=== PATIENT | female | born 1935 | race Caucasian/White ===

== ENCOUNTER 2018-03-27 17:51 | Inpatient (IN) | payer MEDICARE, OTHER ==
[~2018-03-27] VITALS: Ht 157.5 cm; Wt 70.1 kg
[~2018-03-27 17:51] MED LIST changes: -ASPIR 8181 MG PO; -COMPAZINE10 MG PO; -LOMOTIL TABLET1 EACH PO; -NORCO 5-325 TA1 EACH PO; -PEPCID20 MG PO; -TRAMADOL 50 MG50 MG PO; -ZOFRAN ODT4 MG PO
[2018-03-27 20:00] VITALS: BP 150/59
[2018-03-27] MEDS ORDERED: PREDNISONE 5 MG5 M1 PO (20:57)
[2018-03-27] MEDS ORDERED: TUMS PO (20:57)
[2018-03-27 21:14] LABS: HEMATOCRIT 40.3 % (37.0-47.0); HEMOGLOBIN 13.3 gm/dL (12.0-15.0); MCH 31.4 pg (26.0-34.0); MCHC 33.1 g/dL (28.0-37.0); MCV 94.7 fL (80.0-100.0); MPV 8.8 fl. (7.2-11.1); RBC 4.25 mil/uL (4.20-5.00); RDW-CV 13.4 % (10.5-14.5); WBC 11.4 thou/uL (4.0-11.0)
[2018-03-27 21:32] LABS: ALBUMIN 3.6 g/dL (3.4-5.0); ALKALINE PHOSPHATASE 59 U/L (46-116); ANION GAP 7 mmol/L (7-16); BUN 9 mg/dL (7-18); CALCIUM 8.8 mg/dL (8.5-10.1); CHLORIDE 102 mmol/L (98-107); CO2 29 mmol/L (21-32); CREATININE 0.9 mg/dL (0.6-1.3); GLUCOSE 100 mg/dL (70-99); POTASSIUM 3.4 mmol/L (3.5-5.1); SGOT 29 U/L (15-37); SGPT 36 U/L (30-65); SODIUM 138 mmol/L (136-145); TOTAL BILIRUBIN 0.8 mg/dL (<0.1-1.0); TOTAL PROTEIN 7.5 g/dL (6.4-8.2); TROPONIN-I LEVEL <0.06 ng/mL (<0.06)
[2018-03-28] VITALS: BP 127/52
[2018-03-28 04:00] VITALS: BP 135/53; BP 153/53
--- NOTE | 2018-03-28 05:00 | NUR ---
PT DIRECT ADMIT TO 228. ALERT ORIETNED. UP INDEPENDENTLY. DENIES PAIN. BREATH SOUNDS CLEAR. ON RA. ANTIBIOTICS GIVEN. TELEMETRY SHOWS SR.
--- NOTE | 2018-03-28 05:31 | NUR ---
PT HAD METOPROLOL AND ATORVASTATIN ON MED RECONSILIATION LIST. PT STATED SHE NO LONGER TAKES THESE MEDS PER DR MILLER. METOPROLOL AND ATORVASTATIN PLACED ON EMAR. PT REFUSED. ATTEMPTED TO CONTACT DR MA RE DC THESE MEDS VIA YOU CALL MD. NO RETURN CALL. MECICATIONS ON EMAR BUT NOT ACKNOWLEDGED.
[2018-03-28 08:00] VITALS: BP 141/53
--- NOTE | 2018-03-28 11:00 | NUR ---
VSS, ASSUMED CARE OF PT IN THE AM, ASSESSMENT PERFORMED AND CHARTED, FALL PRECAUTIONS IN PLACE AND CALL LIGHT IN REACH, PT IS A&O4, ON RA, DENIES ANY C/O PAIN, HER GOAL IS SAFETY, PT IS TRACING SR ON THE MONITOR, WILL FOLLOW WITH PLAN OF CARE.
[2018-03-28 13:07] VITALS: BP 134/49
[2018-03-28 17:20] VITALS: BP 134/52
--- NOTE | 2018-03-28 17:53 | NUR ---
VSS, PT IS ON RA AND DENIES ANY PAIN IS A&O4, TRACING SR ON THE MONITOR, UP AD KAT, PT MET GOAL WALKED IN ROOM, HOURLY ROUNDS COMPLETED, NO STATUS CHANGE AT THIS TIME,
[2018-03-28 20:00] VITALS: BP 149/59
[2018-03-29] VITALS: BP 138/63
--- NOTE | 2018-03-29 01:34 | NUR ---
PT ALERT ORIENTED. UP INDEPENDENTLY. TELEMETRY SHOWS SR. DENIES PAIN. CLEAR LIQUID DIET BEING FOLLOWED.
[2018-03-29 04:00] VITALS: BP 147/55
[2018-03-29 05:21] LABS: HEMATOCRIT 38.5 % (37.0-47.0); HEMOGLOBIN 12.8 gm/dL (12.0-15.0); MCH 31.8 pg (26.0-34.0); MCHC 33.3 g/dL (28.0-37.0); MCV 95.5 fL (80.0-100.0); MPV 9.3 fl. (7.2-11.1); RBC 4.04 mil/uL (4.20-5.00); RDW-CV 13.3 % (10.5-14.5); WBC 10.1 thou/uL (4.0-11.0)
[2018-03-29 05:41] LABS: ALBUMIN 3.3 g/dL (3.4-5.0); CALCIUM 8.8 mg/dL (8.5-10.1); POTASSIUM 4.4 mmol/L (3.5-5.1); TOTAL BILIRUBIN 0.6 mg/dL (<0.1-1.0); TOTAL PROTEIN 6.5 g/dL (6.4-8.2)
[2018-03-29 08:00] VITALS: BP 166/55
[2018-03-29 12:41] VITALS: BP 145/44
--- NOTE | 2018-03-29 12:59 | CON ---
[address] [address] CONSULTATION Name: YASHIRA BAXTER Room: [address] ADM IN M.R.#: [id number] Admission: 03/27/18 Attend Phys: Carmela Banegas Discharge: Date of : 31 Report #: [id number] THIS REPORT FOR: //name// CC: Chencho Corea MD LOCATED WITHIN [facility] Ade Richey INDICATION: Preoperative evaluation. HISTORY OF PRESENT ILLNESS: The patient is a very pleasant 83-year-old white female who was admitted to the hospital after recent colonoscopy showed colonic mass consistent with malignancy. The patient was suspected of possibly having microperforation, although the abdominal CT today appears stable. She is clinically stable. She is not having any significant abdominal pain. There are plans for partial colon resection in the near future. From a cardiac standpoint, she has a history of severe calcific aortic stenosis, status post bioprosthetic aortic valve replacement in 2013. Followup echocardiograms have shown a normally functioning bioprosthetic aortic valve. Cardiac catheterization at the time of her surgery showed no significant coronary artery disease. Echocardiogram in May 2017, showed normal LV systolic function, moderate LVH, grade 1 diastolic dysfunction and a normally functioning bioprosthetic aortic valve. There was a moderate amount of mitral stenosis noted. She denies any chest pain, tightness or pressure. She is not having any orthopnea or paroxysmal nocturnal dyspnea. There are no symptoms to suggest angina or heart failure. PAST MEDICAL HISTORY: 1. Calcific aortic stenosis, status post bioprosthetic aortic valve replacement in 2013. 2. Hyperlipidemia. 3. Polymyalgia. 4. Gout. 5. Cholecystectomy remotely. 6. Appendectomy as a child. 7. Hysterectomy remotely. 8. Previous knee and ankle surgery. FAMILY HISTORY: Noncontributory. SOCIAL HISTORY: The patient is recently . She does not smoke. [place] [address] CONSULTATION Name: YASHIRA BAXTER Room: [address]#: [id number] Admission: 03/27/18 Attend Phys: Carmela Banegas Discharge: Date of : 31 Report #: [id number] ALLERGIES: SULFA. HOME MEDICATIONS: Aspirin 325 mg p.o. daily, Tums 2 tablets daily, Uloric 20 mg daily, multivitamin 1 tablet daily, prednisone 5 mg daily. REVIEW OF SYSTEMS: A 14-point review of systems is positive for history of a heart murmur. She has arthritis with polymyalgia as well. She wears glasses without acute visual changes, otherwise 14-point review of systems was unremarkable. PHYSICAL EXAMINATION: VITAL SIGNS: Stable. Blood pressure 135/53, pulse 70 and regular. GENERAL: This is a very pleasant elderly female who is in no distress. Mood and affect appropriate. HEENT: The patient is wearing glasses. Extraocular muscles are intact. Mucous membranes are moist. NECK: Examination of the neck shows no jugular venous distention. CHEST: Reveals clear lung alejandra. I do not appreciate wheezes or rales. CARDIAC: Reveals a regular rhythm with a grade 2/6 systolic ejection murmur. I do not appreciate a gallop. ABDOMEN: Reveals normal bowel sounds. EXTREMITIES: Show no edema. SKIN: Warm and dry. A 12-lead EKG shows sinus rhythm with left ventricular hypertrophy with repolarization abnormalities. Labs are reviewed. Sodium 138, potassium 3.4, chloride 102, bicarb 29, BUN 9, creatinine 0.9, serum glucose 100. LFTs within normal limits. Troponin less than 0.06. White blood cell count 11.4, hemoglobin 13.3, platelet count 233,000. Chest x-ray shows no acute cardiopulmonary process. IMPRESSION AND RECOMMENDATIONS: 1. The patient is scheduled for colon surgery in the near future. She is not at prohibitive risk from a cardiac standpoint. Okay to proceed without further cardiac testing. She does have a bioprosthetic aortic valve in place and should be treated with antibiotics perioperatively for SBE prophylaxis. 2. Status post bioprosthetic aortic valve replacement remotely. She continues with serial echocardiograms in the office. Her valve has been functioning normally on serial echocardiograms. 3. Hyperlipidemia. She has had some intolerance to [place] [address] CONSULTATION Name: YASHIRA BAXTER Room: [address] IN [facility].#: [id number] Admission: 03/27/18 Attend Phys: Carmela Banegas Discharge: Date of : 33 Report #: [id number] scheduled at her last visit to have a repeat fasting lipid profile in May 2018. We would continue with that plan. <ELECTRONICALLY SIGNED> By: Mike Bueno MD, FACJayna 03/29/18 1259 1147 [id number] Bueno MD, GILMA /nt
--- NOTE | 2018-03-29 16:59 | EKG ---
[place] [address] ELECTROCARDIOGRAM REPORT Name: YASHIRA BAXTER Room: [address] ADM IN M.R.#: [id number] Admission: 03/27/18 Attend Phys: Carmela Banegas Discharge: Date of : 33 Report #: [id number] THIS REPORT FOR: //name// [facility] Test Date: 2018-03-28 Test Time: 08:31:43 Pat Name: YASHIRA BAXTER Department: Room: [address] Gender: F Food And Nutrition Supervisor: : 1935 Requested By: Kalyan Hernández Order Number: [id number] Sisi MD: Mike Bueno Measurements Intervals Ferguson Rate: 60 P: 53 MI: 160 QRS: -18 QRSD: 114 T: QT: 434 QTc: 434 Interpretive Statements Sinus rhythm Probable left atrial enlargement LVH with secondary repolarization abnormality No previous ECG available for comparison Electronically Signed On 03-29-2018 16:59:38 CDT by Mike Bueno [email or web address] <ELECTRONICALLY SIGNED> By: Mike Bueno MD, [facility] 03/29/18 1659 D: 09/830 0 Mike Bueno MD, FACC /EPI
[2018-03-29 17:17] VITALS: BP 154/50
[2018-03-29 20:36] VITALS: BP 149/53
[2018-03-30] VITALS: BP 132/36
[2018-03-30 04:00] VITALS: BP 152/71
[2018-03-30 04:55] LABS: HEMATOCRIT 38.3 % (37.0-47.0); HEMOGLOBIN 12.8 gm/dL (12.0-15.0); MCH 31.7 pg (26.0-34.0); MCHC 33.4 g/dL (28.0-37.0); MCV 94.9 fL (80.0-100.0); MPV 9.5 fl. (7.2-11.1); RBC 4.04 mil/uL (4.20-5.00); RDW-CV 13.4 % (10.5-14.5); WBC 10.2 thou/uL (4.0-11.0)
--- NOTE | 2018-03-30 04:56 | NUR ---
Pt rested well overnight. No complaints. VSS. Awaiting surgery today, which is scheduled for 1700. Will continue to monitor.
[2018-03-30 05:48] LABS: ALBUMIN 3.3 g/dL (3.4-5.0); CALCIUM 8.9 mg/dL (8.5-10.1); CREATININE 0.9 mg/dL (0.6-1.3); PHOSPHORUS* 3.7 mg/dL (2.5-4.9); POTASSIUM 3.9 mmol/L (3.5-5.1); TOTAL BILIRUBIN 0.6 mg/dL (<0.1-1.0); TOTAL PROTEIN 6.5 g/dL (6.4-8.2)
[2018-03-30 08:05] VITALS: BP 139/48
--- NOTE | 2018-03-30 09:21 | NUR ---
Pt is A&O. Pt known to this CM from a previous stay of her . Pt informed that her in October of this year. Pt's dtr is Dr Delia Ernst. Pt and were staying with dtr prior to passing, Pt has since moved back to the family home in [place], [place]. Pt states that she will spend the winter at her dtr's home. Pt has a new colon CA dx, planned surgery today at 5pm. Pt is normally active and independent. Pt has DME at home, but does not use it, Pt has a walker, cane and wc. Hx of [facility] HH. Hx of SNF at [facility]. Pt stated that will likely dc to her dtr's home at dc. Following.
--- NOTE | 2018-03-30 10:22 | NUR ---
RECEIVED REPORT FROM CHLOE AND ASSUMED CARE OF PT @ 4455.PT IS A/O,VSS,TRACING SB-SR ON THE MONITOR.LUNG SOUNDS ARE CLEAR. LAST BM WAS YESTERDAY.IV PATENT AND SALINE LOCKED.PT IS CALM AND COOPERATIVE WITH NO C/O PAIN AT TIME OF ASSESSMENT.PT NPO AFTER BREAKFAST FOR SURGERY THIS EVENING.CONSENT SIGNED AND ON THE CHART.PRE-OP CHECKLIST COMPLETED.PT UP AD KAT IN ROOM.CALL LIGHT WITHIN REACH.WILL CONTINUE TO MONITOR.
[2018-03-30 10:27] VITALS: BP 139/48; BP 144/67
[2018-03-30 14:17] VITALS: BP 146/45
--- NOTE | 2018-03-30 18:35 | NUR ---
PT REMAINS OFF UNIT FOR GI PROCEDURE.REPORT GIVEN TO NEXT NURSE.NO C/O PAIN THIS SHIFT.IV ANTIBIOTICS COMPLETED THIS SHIFT.PT AMBULATED IN ROOM BY SELF.HOURLY ROUNDING COMPLETED FOR PT SAFETY.
[2018-03-30 21:30] VITALS: BP 146/45
[2018-03-31] VITALS: BP 127/47
[2018-03-31 04:00] VITALS: BP 127/61
[2018-03-31 05:11] LABS: HEMATOCRIT 36.8 % (37.0-47.0); HEMOGLOBIN 12.3 gm/dL (12.0-15.0); MCH 31.7 pg (26.0-34.0); MCHC 33.3 g/dL (28.0-37.0); MCV 95.2 fL (80.0-100.0); MPV 9.3 fl. (7.2-11.1); NUCLEATED RBCS 0 /100WBC; PLATELET COUNT* 218 thou/uL (150-400); RBC 3.87 mil/uL (4.20-5.00); RDW-CV 13.2 % (10.5-14.5); WBC 16.2 thou/uL (4.0-11.0)
[2018-03-31 05:39] LABS: CALCIUM 8.4 mg/dL (8.5-10.1); POTASSIUM 4.4 mmol/L (3.5-5.1)
[2018-03-31 05:56] LABS: ABSOLUTE LYMPHOCYTES 2.6 thou/uL (0.8-5.3); ABSOLUTE MONOCYTES 0.5 thou/uL (0.0-1.2); ABSOLUTE NEUTROPHILS 13.1 thou/uL (1.6-8.1); ANISOCYTOSIS 1+; PLATELET ESTIMATE ADEQUATE; POIKILOCYTOSIS 1+
--- NOTE | 2018-03-31 07:08 | NUR ---
PT TO FLOOR 2129 FROM SURGERY. VITALS STABLE. SEE MAR. SEE CHARTING. FALL PRECAUTIONS IN PLACE. HOURLY ROUNDING FOR SAFETY.
--- NOTE | 2018-03-31 07:25 | NUR ---
CHANGE OF SHIFT BEDSIDE REPORT GIVEN PATIENT SEEN AT BEDSIDE, IN BED ASLEEP ASSUMED PATIENT CARE
[2018-03-31 07:57] VITALS: BP 114/50
--- NOTE | 2018-03-31 11:59 | NUR ---
CONTINUE TO FOLLOW, MET [facility] PT. SHE IS UP IN CHAIR, STATES DOING WELL POST OP. SHE PLANS TO [place] TO DTR[place] WHERE SHE HAS HER OWN 'APT.' STATES SHE WILL BE HOME ALONE DURING THE DAY, DISCUSSED HH, SHE IS AGREEABLE TO USE [facility] [place]. WILL FOLLOW PROGRESS. CALLED AND FAXED INITIAL REFERRAL TO [facility]
[2018-03-31 12:07] VITALS: BP 118/47
[2018-03-31 15:49] VITALS: BP 106/47
[2018-03-31 19:05] VITALS: BP 111/50
[2018-04-01] VITALS: BP 123/34
[2018-04-01 04:00] VITALS: BP 135/47
[2018-04-01 05:02] LABS: ABSOLUTE BASOPHILS 0.1 thou/uL (0.0-0.2); ABSOLUTE EOSINOPHILS 0.1 thou/uL (0.0-0.7); ABSOLUTE LYMPHOCYTES 2.8 thou/uL (0.8-5.3); ABSOLUTE MONOCYTES 0.8 thou/uL (0.0-1.2); ABSOLUTE NEUTROPHILS 10.5 thou/uL (1.6-8.1); BASOPHILS 0.4 %; EOSINOPHILS 0.9 %; HEMATOCRIT 36.5 % (37.0-47.0); LYMPHOCYTES 19.6 %; MCH 31.6 pg (26.0-34.0); MCHC 32.9 g/dL (28.0-37.0); MONOCYTES 5.8 %; MPV 9.1 fl. (7.2-11.1); NUCLEATED RBCS 0 /100WBC; PLATELET COUNT* 196 thou/uL (150-400); POLYS 73.3 %; RDW-CV 13.5 % (10.5-14.5); WBC 14.4 thou/uL (4.0-11.0)
[2018-04-01 05:21] LABS: CALCIUM 8.2 mg/dL (8.5-10.1); CREATININE 0.9 mg/dL (0.6-1.3); MAGNESIUM 1.9 mg/dL (1.8-2.4); PHOSPHORUS* 2.5 mg/dL (2.5-4.9); POTASSIUM 4.2 mmol/L (3.5-5.1)
--- NOTE | 2018-04-01 05:23 | NUR ---
PT AAOX4 RESP REG AND UNLABORED SKIN W/D MARTÍN CUTE DISTRESSNOTED. PT SAT IN CHAIR AT BEDSIDE FOR SEVERAL HOURS THIS SHIFT. PT ASSISTED BACK TO BED WITHOUT DIFFICULTY. PT VOIDED WITHOUT DIFFICULT. LAP SITES CLEAN DRY AND INTACT. PT HAS HAD TWO SMALL LOOSE STOOLS THIS SHIFT. VSS AND NO ACUTE CHANGES THIS SHIFT. SON AT BEDSIDE. TELEMETRY PACK ITNACT WITH ALARMS SET/ WILL CONTINUE TO MONITOR
--- NOTE | 2018-04-01 07:25 | NUR ---
CHANGE OF SHIFT BEDSIDE REPORT GIVEN PATIENT SEEN IN BED ASLEEP ASSUMED PATIENT CARE
[2018-04-01 07:47] VITALS: BP 145/40
[2018-04-01 11:19] VITALS: BP 125/37
[2018-04-01 15:01] VITALS: BP 131/40
[2018-04-01 19:40] VITALS: BP 112/42
[2018-04-02] VITALS: BP 119/59
[2018-04-02 04:00] VITALS: BP 133/43
[2018-04-02 04:53] LABS: HEMATOCRIT 38.5 % (37.0-47.0); HEMOGLOBIN 12.5 gm/dL (12.0-15.0); MCH 30.8 pg (26.0-34.0); MCHC 32.4 g/dL (28.0-37.0); MPV 9.4 fl. (7.2-11.1); RBC 4.05 mil/uL (4.20-5.00); RDW-CV 13.5 % (10.5-14.5); WBC 11.5 thou/uL (4.0-11.0)
[2018-04-02 05:00] LABS: CALCIUM 8.6 mg/dL (8.5-10.1); CREATININE 0.9 mg/dL (0.6-1.3); MAGNESIUM 1.9 mg/dL (1.8-2.4); PHOSPHORUS* 2.8 mg/dL (2.5-4.9); POTASSIUM 3.8 mmol/L (3.5-5.1)
--- NOTE | 2018-04-02 05:25 | NUR ---
VITALS WNL. SEE MAR. SEE CHARTING. FALL PRECAUTIONS IN PLACE. HOURLY ROUNDING FOR SAFETY.
[2018-04-02 08:00] VITALS: BP 146/49
--- NOTE | 2018-04-02 08:00 | NUR ---
ASSUMED CARE AFTER RECIEVING REPORT AT 7:30. VSS AND CT SCAN TECH TRACING SB. PT IS ON ROOM AIR. PT HAS DISCOMFORT AT OPERATION SITE AND RATE HER PAIN AT 3, DENIES NEED FOR PAIN MED AT THIS TIME. PT IS UP WITH STANDBY. SOFT DIET STARTED. CALL LIGHT IS WITHIN REACH. WILL CONTINUE TO MONITOR. SHE WAS UP TO CHAIR FOR BREAKFAST AND TOLERATING IT WELL.
[2018-04-02 12:00] VITALS: BP 123/37
[2018-04-02 16:00] VITALS: BP 117/54
--- NOTE | 2018-04-02 17:54 | NUR ---
PT IS ALERT AND ORIENTED. SAT ON CHAIR FOR MOST OF THE DAY. TOOK NAP IN THE AFTERNOON. HAD LOOSE STOOLS TWO TIMES. CALL LIGHT WITHIN REACH. LAP INCISIONS DRY AND INTACT. PT HAS ABDOMINAL BINDER APPLIED. CARDIAC RHYTHM MONITORING, SINUS RHYTHM. SHE HAD POOR APPETITE, ATE QUATER OF HER PALTE. WILL CONTINUE TO MONITOR.
[2018-04-02 19:20] VITALS: BP 130/43
[2018-04-03] VITALS: BP 161/69
[2018-04-03 04:00] VITALS: BP 142/44
[2018-04-03 04:53] LABS: HEMATOCRIT 36.3 % (37.0-47.0); HEMOGLOBIN 12.2 gm/dL (12.0-15.0); MCH 31.5 pg (26.0-34.0); MCHC 33.6 g/dL (28.0-37.0); MCV 93.7 fL (80.0-100.0); MPV 9.4 fl. (7.2-11.1); RBC 3.87 mil/uL (4.20-5.00); RDW-CV 13.6 % (10.5-14.5); WBC 10.5 thou/uL (4.0-11.0)
--- NOTE | 2018-04-03 05:22 | NUR ---
PT AAOX4 RESO REG AND UNALBORED SKIN W/D NO ACUTE DISTRESS NOTED. PT STATES SHE SHOULD BE DCD TODAY.TELEMETRY PACK INTACT WITH ALARMS SET. VSS AND NO ACUTE CHANGES DURIGN SHIFT WILL CONTINUE TO MONITOR. PT SAT IN CHAIR FOR SEVERAL HOURS LAST PM AND TOELRATED WELL
[2018-04-03 05:27] LABS: CALCIUM 8.4 mg/dL (8.5-10.1); CREATININE 0.8 mg/dL (0.6-1.3); MAGNESIUM 1.9 mg/dL (1.8-2.4); PHOSPHORUS* 2.8 mg/dL (2.5-4.9); POTASSIUM 3.7 mmol/L (3.5-5.1)
[2018-04-03 08:13] VITALS: BP 141/45
--- NOTE | 2018-04-03 11:16 | NUR ---
RECEIVED REPORT FROM EMIGDIO AND ASSUMED CARE OF PT @ 3598.PT IS A/O,VSS,TRACING SB ON THE MONITOR.LUNG SOUNDS ARE CLEAR.LAST BM WAS YESTERDAY.IV PATENT AND SALINE LOCKED.ABDOMINAL BINDER SECURE IN PLACE.PT IS CALM AND COOPERATIVE WITH NO C/O PAIN AT TIME OF ASSESSMENT.PT WORKED WITH PHYSICAL THERAPY THIS AM AND AMBULATED IN THE [facility].PT IS UP WITH SBA IN ROOM.PT LEFT RESTING IN RECLINER WITH CALL LIGHT AND FALL PRECAUTIONS IN PLACE.WILL CONTINUE TO MONITOR.
[2018-04-03 11:50] VITALS: BP 143/46
[2018-04-03 14:00] VITALS: BP 143/46
[2018-04-03] MEDS ORDERED: NORCO 5-325 TA1 EACH PO (14:10)
[2018-04-03] MEDS ORDERED: TRAMADOL 50 MG50 MG PO (14:12)
--- NOTE | 2018-04-03 14:36 | NUR ---
PT OK FOR DISCHARGE.PAPERWORK COMPLETED AND GIVEN TO PT.SCRIPTS GIVEN WITH EDUCATION.IV REMOVED.HEART MONITOR REMOVED AND RETURNED TO NURSING STATION.ALL PERSONAL BELONGINGS PACKED AND TAKEN WITH PT.PT WHEELED OUT BY NURSING STAFF WITH FAMILY TO PERSONAL VEHICLE.
--- NOTE | 2018-04-03 14:55 | NUR ---
ORDERS FOR DC NOTED. CALLED AND FAXED ORDERS TO [facility], REQUESTED VISIT ON FRIDAY LATER IN DAY PER PT. PT TO GO HOME WTIH HER SON TODAY AND THEN BACK TO HER HOME AT DTR'S ON FRIDAY. NO OTHER NEEDS ID;D
--- NOTE | 2018-04-11 12:39 | OP ---
[address] [address] OPERATIVE REPORT Name: YASHIRA BAXTER Room: [address] IN M.R.#: [id number] Admission: 03/27/18 Attend Phys: Carmela Banegas Discharge: 04/03/18 Date of : 31 Report #: [id number] THIS REPORT FOR: //name// CC: Jamison Hernández DATE OF SERVICE: 03/30/2018 PREPROCEDURE DIAGNOSIS: Sigmoid colon cancer. POSTPROCEDURE DIAGNOSES: Sigmoid colon cancer with dense adhesions between the omentum and the anterior abdominal wall, dense adhesions overlying the colon in the right lower quadrant as well. There was a large firm mass in the mid portion of the sigmoid with proximal and distal tattoos evident. SURGEON: Melani Kaplan DO. COSURGEON: Dillan España, PGY-4. DECORATIVE CUTTING MACHINE TENDER: Jeanine Krishnamurthy, PGY-1. PROCEDURES PERFORMED: Laparoscopic sigmoid resection with end-to-end anastomosis and rigid sigmoidoscopy, lysis of adhesions greater than 1 hour. ANESTHESIA: General endotracheal and local. ESTIMATED BLOOD LOSS: 10 mL. DRAINS: Schultz. SPECIMENS: Sigmoid colon. COMPLICATIONS: None. CONDITION: Stable. DISPOSITION: PACU to the floor. HISTORY OF PRESENT ILLNESS: The patient is a very litzy 83-year-old female who recently presented to the [facility] for outpatient colonoscopy. This was completed without difficulty, with findings of a sigmoid colon mass, which was biopsied and tattooed. She did have some pain following the colonoscopy, so was admitted to the hospital. During her hospital stay, the pathology did return with findings of colon cancer. She was then consulted to my service. After the appropriate preoperative clearances, she was then [place] [address] OPERATIVE REPORT Name: YASHIRA BAXTER Room: [address]#: [id number] Admission: 03/27/18 Attend Phys: Carmela Banegas Discharge: 04/03/18 Date of : 33 Report #: [id number] surgery for a laparoscopic sigmoidectomy, possible open. Risks discussed included bleeding, infection, pain, scar formation, injury to bowel or bladder or other intra-abdominal organs, hernia at the incision sites, need for an open procedure, need for colostomy and risks of general anesthesia. The patient understood these risks and elected to proceed. DESCRIPTION OF PROCEDURE: The patient was brought to the operating room. She was laid supine on the operating room table. SCDs were placed to bilateral lower extremities. Antibiotics were given in the perioperative period. General endotracheal anesthesia was induced by Anesthesia without difficulty. Schultz catheter was placed utilizing sterile technique. The patient was placed in lithotomy position with all possible pressure points adequately cautioned. Arms were tucked to the sides. Abdomen was prepped and draped in the standard sterile fashion. Timeout was performed to verify patient and procedure. 10 mL of 0.5% Marcaine were injected in the umbilical area. Incision was made with 11 blade. Cautery was used for hemostasis. S retractors were used to visualize the fascia. Fascia was grasped and elevated between 2 Kochers. Fascia was incised using cautery. Peritoneum was bluntly entered using a Tomasa clamp. Finger was introduced into the abdomen to assure that there were no caridad-incisional adhesions; none were identified. Two stitches of 0 Vicryl were placed on the fascia. Ashley trocar was introduced and the abdomen was insufflated. Camera was introduced and a brief anterior abdominal exploration was undertaken with findings of an obvious sigmoid colon mass which was somewhat tethered down in the right lower quadrant. There were proximal and distal tattoos evident. There were very dense adhesions in the right lower quadrant, overlying the colon. There were multiple dense adhesions along the entire right side of the abdomen, most likely from previous surgery. Three additional trocars were introduced, all under direct visualization; an 11 mm in the right lower quadrant, a 5 mm in the suprapubic area and a 5 mm in the right upper quadrant. We then proceeded with delicate and tedious lysis of adhesions of all the adhesions in the right upper quadrant and the adhesions overlying the right lower quadrant, utilizing a combination of blunt and scissor dissection. Once the entirety of the adhesions was cleared, I then focused on the sigmoid colon. The lysis of adhesions did proceed for longer than 1 hour. The sigmoid colon was densely adhered into the right lower quadrant, especially in the area overlying the iliac artery and vein. It was very gently dissected free from this area using scissor dissection. Once the sigmoid colon was entirely free, it was gently rotated to the right side of the abdomen. The left-sided white line of Toldt was incised using cautery, starting at the proximal tattoo and moving to the distal tattoo. Care was taken to avoid the ureter. Sigmoid colon was then mobilized to the left side of the abdomen and the medial portion of the mesentery was similarly incised, moving from the [address] [address] OPERATIVE REPORT Name: YASHIRA BAXTER Room: [address]#: [id number] Admission: 03/27/18 Attend Phys: Carmela Banegas Discharge: 04/03/18 Date of : 33 Report #: [id number] proximal tattoo to the distal tattoo. Retroperitoneal structures were gently swept away. An area of healthy-appearing distal colon was identified right at the distal tattoo. At this area, a window was created in the mesentery using a combination of LigaSure and blunt dissection. A 60-mm purple load Endo-ANALISA stapler was introduced into the abdomen and the distal colon was clamped and stapled without difficulty. The mesentery of the colon was then taken with serial firings of the LigaSure, again taking care to avoid the ureter. Once we reached the proximal tattoo, the sigmoid colon was entirely free. A locking clamp was placed on the distal portion of our colon. The abdomen was desufflated and the patient was placed supine. Our Ashley trocar was removed. The umbilical incision was enlarged using a 10 blade. Cautery was used for hemostasis to enlarge both the subcutaneous and the peritoneal wound. An Mazin wound protector was introduced. The sigmoid colon was then easily grasped using a [place] and was eviscerated from the abdomen. A bowel grasper was very gently placed across the healthy portion of our proximal bowel and the sigmoid colon was transected using heavy curved scissors. This was then handed off for specimen. Allis clamps were used to gently open our stump. The interior was inspected. There was no sign of any disease or bleeding. Dilators were then passed. The largest sized dilator that would easily pass was a 31. A 31 XL EEA stapler was then opened. The anvil was easily introduced into our enterotomy. The enterotomy was then closed with a 60 mm purple load Endo-ANALISA stapler fire. Anvil was gently pushed through the serosa. Colon was allowed to return into the abdomen. Cap was placed on the Mazin and abdomen was reinsufflated. The patient was again gently placed head down and slightly tilted to the left. At this point, my quality control assistant, Dr. España, went below. Rigid sigmoidoscopy was introduced and a brief inspection was completed of the stump, with no findings of injury. A bubble test was performed, with no findings of any leakage from the stump. The dilators were passed without difficulty. The EEA stapler was also introduced without any issue. Anvil was gently grasped and easily reached the area of our distal colon. The remaining descending colon was completely tension-free. Anvil was introduced onto the stapler and an end-to-end anastomosis was completed without difficulty. Again, care was taken to make sure that the proximal colon was tension-free and was not twisted. EEA stapler was removed. Rigid sigmoidoscopy was again introduced by Dr. España and a brief inspection was completed, with no significant findings. The proximal colon was gently clamped using a bowel grasper and a repeat bubble study was completed of the anastomosis, with no findings of any leakage. The abdomen and pelvis were copiously irrigated until clear. Hemostasis was assured. Small bowel was allowed to fall into its anatomical position. The omentum was brought down to lay into its anatomical position, covering our newly made anastomosis. Our trocars were all removed under direct visualization. There was no bleeding noted from the peritoneum. Abdomen was then completely [address] [address] OPERATIVE REPORT Name: YASHIRA BAXTER Room: M.228-P DIS IN M.R.#: [id number] Admission: 03/27/18 Attend Phys: Carmela Banegas Discharge: 04/03/18 Date of : 33 Report #: [id number] desufflated and Mazin wound protector was removed. Kochers were placed on the fascia of our umbilical port. Fascia was then closed with multiple interrupted stitches of a 0 Vicryl in a mhzjld-mh-wgrls fashion with excellent approximation of the fascia. An additional 10 mL of 0.5% Marcaine were injected in the fascia. This wound was closed in a layered fashion using deep and superficial stitches of 3-0 Vicryl in an inverted interrupted fashion. All skin wounds were then closed with 4-0 Monocryl. A total of 30 mL of 0.5% Marcaine were used to anesthetize the wounds. Wounds were then cleansed and covered with Mastisol, Steri-Strips, 4 x 4's and Tegaderm. The patient was then allowed to awaken from anesthesia, was extubated and transported to the recovery room with no further difficulties. Counts were correct x 2 at the conclusion of the case. <ELECTRONICALLY SIGNED> By: Melani Kaplan DO 04/11/18 1239 [id number] [id number] Kaplan DO /nt
--- NOTE | 2018-05-19 15:08 | PATH ---
[address] [address] PATHOLOGY RPT PROCEDURE Name: ELISABET BAXTER Room: [address] IN M.R.#: [id number] Admission: 03/27/18 Date of : 31 Discharge: 04/03/18 Report #: [id number] Path Case #: [id number] LCA Accession Number: [id number] . 01 Material submitted: . SIGMOID COLON WITH ANASTOMIC RINGS . 01 Clinical history: . Colon cancer . 02 Diagnosis: SIGMOID COLON WITH ANASTOMOTIC RINGS: - ULCERATED, NEAR CIRCUMFERENTIAL COLONIC ADENOCARCINOMA, FORMING A MASS MEASURING 3.8 X 1.6 CM, WITH TRANSMURAL INVASION INTO PERICOLIC FAT TO SUBSEROSA WITHOUT INVOLVING FREE SEROSAL SURFACE, WITH ALL SURGICAL MARGINS FREE OF INVOLVEMENT. - THREE OF TWENTY-FIVE PERICOLIC LYMPH NODES WITH METASTATIC ADENOCARCINOMA (0/25). - THREE MESENTERIC TUMOR DEPOSITS. - Acute serositis with foreign body-type granulomatous response. - Separate tubular adenoma without high grade dysplasia. - Two benign colonic anastomotic rings. LBQ/04/03/2018 . 02 Comment: Synoptic Report . Procedure: Sigmoidectomy Tumor Site: Sigmoid colon Tumor Size: 3.8 x 1.6 cm Macroscopic Tumor Perforation: Not identified Histologic Type: Adenocarcinoma Histologic Grade: G2: Moderately differentiated Tumor Extension: Tumor invades through the muscularis propria into pericolorectal tissue Margins: All margins are uninvolved by invasive carcinoma, high-grade dysplasia, intramucosal adenocarcinoma, and adenoma Margins examined: Proximal, distal, mesenteric Distance of invasive carcinoma from closest margin: 2.0 cm Closest margin: Mesenteric Proximal Margin: [place] [address] PATHOLOGY RPT PROCEDURE Name: ELISABET BAXTER Room: [address]#: [id number] Admission: 03/27/18 Date of : 31 Discharge: 04/03/18 Report #: [id number] Path Case #: [id number] Distance of tumor from margin: 7.0 cm Distal Margin: Uninvolved by invasive carcinoma Distance of tumor from margin: 4.3 cm Mesenteric Margin: Uninvolved by invasive carcinoma Distance of tumor from margin: 2.0 cm Treatment Effect: No known presurgical therapy Lymphovascular Invasion: Present Small vessel lymphovascular invasion Large vessel (venous) invasion Extramural Perineural Invasion: Not identified Tumor Budding: Number of tumor buds in 1 "hotspot" field: 4 Low score (0-4) Type of Polyp in Which Invasive Carcinoma Arose: None identified Tumor Deposits: Present Number of deposits: 3 Regional Lymph Nodes: Number of Lymph Nodes Involved: 3 Number of Lymph Nodes Examined: 25 PATHOLOGIC STAGE CLASSIFICATION (pTNM, AJCC 8TH EDITION) Primary Tumor (pT): pT3: Tumor invades through the muscularis propria into pericolorectal tissues Regional Lymph Nodes (pN): pN1b: Two or three regional lymph nodes are positive . Per discussion with Dr. Kaplan on afternoon of 04/03/2018, the open end of the segment of bowel was the proximal aspect. The tumor shows prominent necrosis and was grossly noted to extend into the pericolic fat for a depth of 0.5 cm, to just beneath the inked serosal surface without involving it. . In A17, several of the nodules represent large venous invasion of tumor as well as tumor deposits and a lymph node with metastatic tumor as well. Prominent acute serositis is present and in A5, it is seen to be associated with foreign body-type granulomatous response and review of Dr. Kaplan's consultation report, dated 03/28/2018, reveals a CT abdomen/pelvis after a recent prior colonoscopy revealed possible microperforation near the site of mass. There is no evidence of gross perforation of the tumor. A section taken from the distal stapled margin (A2) is noted to show prominent mural/serosal black pigment tattooing. . A3 reviewed with Dr. Augusto Travis who agrees with the diagnosis. (RICHARD/db; 04/03/18) . 02 [place] [address] PATHOLOGY RPT PROCEDURE Name: ELISABET BAXTER Room: [address] IN [facility].#: [id number] Admission: 03/27/18 Date of : 31 Discharge: 04/03/18 Report #: [id number] Path Case #: [id number] Addendum: . At the request of Dr. Nixon Haywood, mismatch repair (MMR) protein immunohistochemical staining was performed. . Specimen: Formalin fixed paraffin embedded tissue Specimen ID: [id number] A5 Reason for testing: To evaluate for evidence of defective mismatch repair proteins. Method: Immunohistochemical staining for the presence or absence of protein expression of one or more of the following MMR protein markers: MLH1, MSH2, MSH6 and PMS2. Tumor type: Colonic adenocarcinoma . Results: MLH1 - Preserved MSH2 - Preserved MSH6 - Preserved PMS2 - Preserved . Mismatch Repair Status: MMR Proficient (MMR-P) . Interpretation: . All four MMR proteins are preserved within tumor cells. This suggests the presence of normal DNA mismatch repair function within the tumor and an observable defect in mismatch repair is not identified. The likelihood that this patient has an inherited germline mutation syndrome due to defective mismatch repair is reduced but not totally eliminated. If the patient has a strong personal or family history of HPNCC/Cast syndrome related cancers (colorectal, endometrial, gastric, ovarian, pancreatic, ureter/renal pelvis, biliary tract, brain, small bowel and Odin-Karlos syndrome), consider MSI testing by PCR methodology. Suggest clinical correlation and follow up. . These test results are designed for screening purposes only and are useful tools in identifying cancer patients that are more likely to have Cast Syndrome related diagnoses. Tests should be interpreted in the context of clinical findings, family history and laboratory data. Abnormal IHC results for MMR protein expression are not considered diagnostic for Cast Syndrome. (RICHARD:bart; 05/19/2018) . . Professional services performed by [facility] at [facility], [address] [place] [address] [place] [address]. Technical services performed by [facility] at [address] [place] [address], [address], [place] [address]. S/05/19/2018 Addendum Electronically Signed by Bin Lincoln MD, [place] [address] PATHOLOGY RPT PROCEDURE Name: ELISABET BAXTER Room: [address] IN M.R.#: [id number] Admission: 03/27/18 Date of : 31 Discharge: 04/03/18 Report #: [id number] Path Case #: [id number] . 02 Electronically signed: . Bin Lincoln MD, Pathologist NPI- [id number] . 01 Gross description: . The specimen is received in formalin, labeled "Elisabet Baxter, sigmoid colon with anastomotic rings" and consists of an unoriented segment of large intestine measuring 13.0 cm in length and 2.3 cm in diameter with pericolic fat up to 4.3 cm. One margin is open while the other is closed with reina. The serosa is harris-brown with black tattoo ink adjacent to a "puckered area" that measures 1.5 x 1.2 cm. The mesenteric margin is inked blue and the serosa black. Opening the specimen reveals a near circumferential pink-harris, ulcerated, and fungating mass measuring 3.8 x 1.6 cm that extends from the margins as follows: 7.0 cm from open margin and 4.3 cm from the stapled margin. Adjacent to the mass is a bosselated polyp measuring 1.1 x 0.8 cm that extends from the stapled margin by 2.7 cm. The specimen is placed back in formalin for additional fixation. (SDY; 03/31/2018) . After additional fixation sectioning reveals the mass obliterates the muscular wall, abuts the black inked serosa, and invades into the pericolic fat to a maximum depth of 0.5 cm. The mass clears the mesenteric margin by 2.0 cm. The remainder of the mucosa is pink harris with no additional masses or lesions. Also received in the container is an anvil with two attached anastomotic rings that measure 1.8 x 1.5 x 0.4 cm and 1.4 x 1.0 x 0.4 cm. The larger ring has reina present and is inked black. The fat is sectioned and placed in clearing solution to reveal multiple lymph node candidates ranging from 0.1 cm to 1.0 cm. [employer] sections are submitted as follows: . A1: Open margin A2: Stapled margin A3-A4: Mass deep invasion A5-A6: Mass abutting blacking serosa A7-A9: Additional sales representative printing mass A10: Mesenteric margin, perpendicular A11: Polyp adjacent mass, bisected A12: Anastomotic rings, entire smaller and sales representative printing of the larger A13: One lymph node candidate serially sectioned A14: Two lymph nodes candidates bisected, one inked black A15: Multiple intact lymph node candidates A16: One trisected lymph node candidate A17: Multiple intact lymph node candidates A18: Two bisected lymph node candidates, one inked black A19-A20: Lymphovascular bundles (SDY; 04/01/2018) SYU/SYU . 02 [place] [address] PATHOLOGY RPT PROCEDURE Name: ELISABET BAXTER Room: [address] IN [facility].#: [id number] Admission: 03/27/18 Date of : 31 Discharge: 04/03/18 Report #: [id number] Path Case #: [id number] Pathologist provided ICD-10: C18.7, C77.2, D12.5, K65.8 . 02 CPT . 339743, 882346, X74011, T78721 Specimen Comment: A courtesy copy of this report has been sent to Specimen Comment: [phone], , , . Specimen Comment: Report sent to ,DR MCGILL / DR MENESES Specimen Comment: A duplicate report has been generated due to demographic updates. Performed at: [address], [place], [place] [address] MD Richi Akhtar MD Phone: [phone] Performed at: [facility] [address], [place], [place] [id number] MD Bin Lincoln MD Phone: [phone]
--- NOTE | 2018-06-03 17:34 | CON ---
[address] [address] CONSULTATION Name: YASHIRA BAXTER Room: [address] IN M.R.#: [id number] Admission: 03/27/18 Attend Phys: Carmela Banegas Discharge: 04/03/18 Date of : 31 Report #: [id number] THIS REPORT FOR: //name// CC: Jamison Hernández DATE OF SERVICE: 03/27/2018 REQUESTING PHYSICIAN: Dr. Kalyan Hernández REASON FOR CONSULT: Abnormal CT. This is an 83-year-old female with recently diagnosed colonic mass during her colonoscopy on Friday. The lesion was in the midsigmoid region and was extending 4 cm in length. This was an apple core lesion and was partially obstructing. The proximal and distal part of this lesion was tattooed. Her admission was prompted after she had a CT of abdomen and pelvis as a workup for her colon cancer. The lesion was noted in the CT with some abnormal pocketed small air collections close to the bladder. Given the patient's age, we considered to bring her to the hospital for further evaluation. PAST MEDICAL HISTORY: Significant for history of polymyalgia rheumatica, dyslipidemia, gallbladder disease, status post cholecystectomy, appendectomy, hysterectomy, oophorectomy, cataract surgery and gout. ALLERGIES: SIGNIFICANT TO SULFA. MEDICATIONS: Please refer to hospital MAR. SOCIAL HISTORY: The patient lives at home. Denies tobacco or alcohol use. FAMILY HISTORY: Negative for GI malignancy. ASSESSMENT AND PLAN: This is an 83-year-old female with a history of recent colonoscopy, which was significant for midsigmoid partially obstructing mass. The biopsies are significant for moderately differentiated adenocarcinoma of the colon. I believe that the abnormal finding in the CT is consistent with the submucosal injection of Nicolle ink to the proximal and distal ____ of the lesion. The patient is asymptomatic and passing stool and gas. I have discussed her case with Dr. Kaplan as we had [place] [address] CONSULTATION Name: YASHIRA BAXTER Room: [address] IN ..#: [id number] Admission: 03/27/18 Attend Phys: Carmela Banegas Discharge: 04/03/18 Date of : 33 Report #: [id number] segmental sigmoid resection and she was supposed to meet her on Friday in her office, but since she is in the hospital we can prep her for surgery and possibly do her surgery on Friday or Friday. We will discuss this with the patient's family and make further recommendation. <ELECTRONICALLY SIGNED> By: Ade Ornelas MD 06/03/18 1734 1040 1152Farid Nohelia Ornelas MD /nt
== END 2018-04-03 14:45 | disposition home health service (06) | DRG 856 ==
LOC: M.2W 17:51
PROVIDERS: Surgery; ADMIT Internal Medicine
PROC: 0DNU4ZZ Release Omentum, Percutaneous Endoscopic Approach (ICD-10-PCS; principal; 2018-03-30)
PROC: 0DBN4ZZ Excision of Sigmoid Colon, Percutaneous Endoscopic Approach (ICD-10-PCS; principal; 2018-03-30)
PROC: 0DJD8ZZ Inspection of Lower Intestinal Tract, Via Natural or Artificial Opening Endoscopic (ICD-10-PCS; principal; 2018-03-30)
PROC: 0DNE4ZZ Release Large Intestine, Percutaneous Endoscopic Approach (ICD-10-PCS; principal; 2018-03-30)
DX: T81.4XXA Infection following a procedure, initial encounter (principal); K63.1 Perforation of intestine (nontraumatic); K65.8 Other peritonitis; C18.7 Malignant neoplasm of sigmoid colon; K66.0 Peritoneal adhesions (postprocedural) (postinfection); M35.3 Polymyalgia rheumatica; E78.5 Hyperlipidemia, unspecified; M10.9 Gout, unspecified; Z96.1 Presence of intraocular lens; Y83.8 Other surgical procedures as the cause of abnormal reaction of the patient, or of later complication, without mention of misadventure at the time of the procedure; Y92.89 Other specified places as the place of occurrence of the external cause; Z90.49 Acquired absence of other specified parts of digestive tract; Z90.710 Acquired absence of both cervix and uterus; Z90.721 Acquired absence of ovaries, unilateral; Z95.2 Presence of prosthetic heart valve; Z98.42 Cataract extraction status, left eye; Z98.41 Cataract extraction status, right eye; Z79.82 Long term (current) use of aspirin; Z79.899 Other long term (current) drug therapy; Z88.2 Allergy status to sulfonamides

== ENCOUNTER → 2018-03-27 | Outpatient (CLI) | payer MEDICARE, OTHER ==
[~2018-03-27] MED LIST: ASPIR 8181 MG PO; ASPIRIN325 PO; CENTRUM SILVER1 EAC4 PO; COMPAZINE10 MG PO; ECOTRIN81 MG PO; HYDROCODONE-AP1 EAC6 PO; KEFLEX500 M1 PO; LIVALO1 MG PO; LOMOTIL TABLET1 EACH PO; MILLIPRED DP5 M1 PO; NORCO 5-325 TA1 EACH PO; ONDANSETRON HCL4 M2 PO; PEPCID20 MG PO; PREDNISONE 5 MG5 M1 PO; PRINIVIL10 MG PO; TOPROL XL25 MG PO; TRAMADOL 50 MG50 MG PO; TUMS PO; TYLENOL325 MG PO; ULORIC40 MG PO; XARELTO10 MG PO; ZOFRAN ODT4 MG PO
[2018-03-27 12:28] LABS: ABSOLUTE EOSINOPHILS 0.2 thou/uL (0.0-0.7); ABSOLUTE LYMPHOCYTES 3.5 thou/uL (0.8-5.3); ABSOLUTE MONOCYTES 0.6 thou/uL (0.0-1.2); ABSOLUTE NEUTROPHILS 8.6 thou/uL (1.6-8.1); BASOPHILS 0.2 %; EOSINOPHILS 1.4 %; HEMATOCRIT 42.9 % (37.0-47.0); HEMOGLOBIN 13.8 gm/dL (12.0-15.0); LYMPHOCYTES 26.8 %; MCH 30.7 pg (26.0-34.0); MCHC 32.3 g/dL (28.0-37.0); MCV 95.2 fL (80.0-100.0); MONOCYTES 4.8 %; MPV 8.9 fl. (7.2-11.1); NUCLEATED RBCS 0 /100WBC; PLATELET COUNT* 262 thou/uL (150-400); POLYS 66.8 %; RDW-CV 13.4 % (10.5-14.5); WBC 12.9 thou/uL (4.0-11.0)
[2018-03-27 12:42] LABS: ALBUMIN 3.9 g/dL (3.4-5.0); POTASSIUM 3.9 mmol/L (3.5-5.1); TOTAL BILIRUBIN 0.9 mg/dL (<0.1-1.0)
== END ==
LOC: M.LAB 11:58 → M.CT 13:30
PROVIDERS: Internal Medicine Gastroenterology
DX: C18.9 Malignant neoplasm of colon, unspecified (principal); J98.4 Other disorders of lung; M41.84 Other forms of scoliosis, thoracic region; E78.5 Hyperlipidemia, unspecified; Z90.710 Acquired absence of both cervix and uterus; Z90.49 Acquired absence of other specified parts of digestive tract

== ENCOUNTER 2018-05-23 21:51 | Inpatient (IN) | payer MEDICARE, OTHER ==
[~2018-05-23] VITALS: Ht 157.5 cm; Wt 71.7 kg
[~2018-05-23 21:51] MED LIST changes: +NORCO 5-325 TA1 EACH PO; +TRAMADOL 50 MG50 MG PO
[2018-05-23 21:58] VITALS: BP 168/65
[2018-05-23 22:43] LABS: ABSOLUTE EOSINOPHILS 0.1 thou/uL (0.0-0.7); ABSOLUTE LYMPHOCYTES 3.1 thou/uL (0.8-5.3); ABSOLUTE NEUTROPHILS 11.7 thou/uL (1.6-8.1); BASOPHILS 0.1 %; EOSINOPHILS 0.5 %; HEMATOCRIT 43.6 % (37.0-47.0); HEMOGLOBIN 14.2 gm/dL (12.0-15.0); LYMPHOCYTES 19.5 %; MCH 30.2 pg (26.0-34.0); MCHC 32.6 g/dL (28.0-37.0); MCV 92.7 fL (80.0-100.0); MONOCYTES 6.3 %; MPV 8.9 fl. (7.2-11.1); NUCLEATED RBCS 0 /100WBC; PLATELET COUNT* 224 thou/uL (150-400); POLYS 73.6 %; RDW-CV 13.3 % (10.5-14.5); WBC 15.9 thou/uL (4.0-11.0)
[2018-05-23 22:48] LABS: INR 1.1; PROTIME 11.7 Seconds (9.20-11.50)
[2018-05-23 22:49] LABS: ANION GAP 10 mmol/L (7-16); BUN 21 mg/dL (7-18); CALCIUM 9.1 mg/dL (8.5-10.1); CHLORIDE 103 mmol/L (98-107); CO2 24 mmol/L (21-32); GLUCOSE 141 mg/dL (70-99); POTASSIUM 3.2 mmol/L (3.5-5.1); SODIUM 137 mmol/L (136-145)
[2018-05-23 23:00] LABS: ALBUMIN 3.4 g/dL (3.4-5.0); ALKALINE PHOSPHATASE 60 U/L (46-116); NT-PRO BRAIN NAT PEPTIDE 658 pg/mL (<300); SGOT 49 U/L (15-37); SGPT 47 U/L (30-65); TOTAL BILIRUBIN 0.5 mg/dL (<0.1-1.0); TOTAL PROTEIN 6.7 g/dL (6.4-8.2); TROPONIN-I LEVEL <0.06 ng/mL (<0.06)
[2018-05-24 00:22] VITALS: BP 111/43
[2018-05-24 01:00] VITALS: BP 134/45
[2018-05-24 01:29] LABS: HEMATOCRIT 40.7 % (37.0-47.0); HEMOGLOBIN 13.2 gm/dL (12.0-15.0); MCH 30.3 pg (26.0-34.0); MCHC 32.5 g/dL (28.0-37.0); MCV 93.3 fL (80.0-100.0); MPV 9.1 fl. (7.2-11.1); RBC 4.37 mil/uL (4.20-5.00); RDW-CV 13.3 % (10.5-14.5); WBC 18.2 thou/uL (4.0-11.0)
[2018-05-24 01:38] LABS: CALCIUM 8.6 mg/dL (8.5-10.1); CREATININE 0.9 mg/dL (0.6-1.3); MAGNESIUM 1.9 mg/dL (1.8-2.4); POTASSIUM 3.5 mmol/L (3.5-5.1); TOTAL BILIRUBIN 0.4 mg/dL (<0.1-1.0); TOTAL PROTEIN 6.1 g/dL (6.4-8.2)
[2018-05-24 07:55] VITALS: BP 120/42
[2018-05-24] MEDS ORDERED: ASPIR 8181 MG PO (10:14)
--- NOTE | 2018-05-24 10:24 | EKG ---
[place] [address] ELECTROCARDIOGRAM REPORT Name: DWIGHT BAXTERA MATTIE Room: [address] ADM IN M.R.#: [id number] Admission: 05/23/18 Attend Phys: Axel Preston, Discharge: Date of : 33 Report #: [id number] THIS REPORT FOR: //name// [facility] ED Test Date: 2018-05-23 Test Time: 22:12:31 Pat Name: YASHIRA BAXTER Department: Room: [facility] Gender: F Hand Former Helper: : 1935 Requested By: Margy Gray Order Number: [id number] MD: Mike Bueno Measurements Intervals [place] Rate: 74 P: 57 IN: 152 QRS: -6 QRSD: 116 T: 92 QT: 416 QTc: 462 Interpretive Statements Sinus rhythm Probable left atrial enlargement LVH with secondary repolarization abnormality Compared to ECG 03/28/2018 08:31:43 No significant changes Electronically Signed On 05-24-2018 10:24:12 [employer] by Mike Bueno [email or web address] <ELECTRONICALLY SIGNED> By: Mike Bueno MD, [facility] 05/24/18 1024 11 11 Mike Bueno MD, [facility] /EPI
[2018-05-24 12:39] VITALS: BP 136/42
[2018-05-24 16:50] VITALS: BP 127/48
[2018-05-24 17:00] VITALS: BP 139/52
[2018-05-25] VITALS: BP 129/54
[2018-05-25 03:56] LABS: HEMATOCRIT 36.6 % (37.0-47.0); HEMOGLOBIN 12.2 gm/dL (12.0-15.0); MCHC 33.4 g/dL (28.0-37.0); MCV 92.9 fL (80.0-100.0); MPV 8.9 fl. (7.2-11.1); RBC 3.94 mil/uL (4.20-5.00); RDW-CV 13.3 % (10.5-14.5); WBC 8.5 thou/uL (4.0-11.0)
[2018-05-25 04:20] LABS: ALBUMIN 2.4 g/dL (3.4-5.0); CALCIUM 7.6 mg/dL (8.5-10.1); CREATININE 0.7 mg/dL (0.6-1.3); POTASSIUM 3.3 mmol/L (3.5-5.1); TOTAL BILIRUBIN 0.3 mg/dL (<0.1-1.0); TOTAL PROTEIN 4.9 g/dL (6.4-8.2)
[2018-05-25 08:00] VITALS: BP 118/50
[2018-05-25 16:40] VITALS: BP 120/53
[2018-05-26] VITALS: BP 121/50
[2018-05-26 04:56] LABS: HEMOGLOBIN 11.2 gm/dL (12.0-15.0); MCH 31.7 pg (26.0-34.0); MCHC 33.9 g/dL (28.0-37.0); MCV 93.4 fL (80.0-100.0); MPV 8.9 fl. (7.2-11.1); RBC 3.53 mil/uL (4.20-5.00); RDW-CV 13.6 % (10.5-14.5); WBC 6.6 thou/uL (4.0-11.0)
[2018-05-26 05:02] LABS: CALCIUM 7.7 mg/dL (8.5-10.1); CREATININE 0.7 mg/dL (0.6-1.3); MAGNESIUM 1.6 mg/dL (1.8-2.4); PHOSPHORUS* 2.4 mg/dL (2.5-4.9); POTASSIUM 4.1 mmol/L (3.5-5.1)
[2018-05-26 08:15] VITALS: BP 107/30
[2018-05-26] MEDS ORDERED: ZOFRAN ODT4 MG PO (11:40)
[2018-05-26] MEDS ORDERED: LOMOTIL TABLET1 EACH PO (11:41)
[2018-05-26 11:46] VITALS: BP 107/30
[2018-05-26 11:56] VITALS: BP 112/39
[2018-05-26 21:00] VITALS: BP 111/35
[2018-05-27 07:40] VITALS: BP 118/37
[2018-05-27 08:28] LABS: HEMATOCRIT 35.1 % (37.0-47.0); HEMOGLOBIN 11.9 gm/dL (12.0-15.0); MCH 31.8 pg (26.0-34.0); MCV 93.4 fL (80.0-100.0); MPV 8.1 fl. (7.2-11.1); RBC 3.76 mil/uL (4.20-5.00); RDW-CV 13.8 % (10.5-14.5); WBC 5.3 thou/uL (4.0-11.0)
[2018-05-27 08:39] LABS: CALCIUM 7.6 mg/dL (8.5-10.1); CREATININE 0.7 mg/dL (0.6-1.3); MAGNESIUM 1.6 mg/dL (1.8-2.4); PHOSPHORUS* 3.1 mg/dL (2.5-4.9); POTASSIUM 3.9 mmol/L (3.5-5.1)
--- NOTE | 2018-05-27 15:04 | CON ---
[address] [address] CONSULTATION Name: YASHIRA BAXTER Room: [address] IN M.R.#: [id number] Admission: 05/23/18 Attend Phys: Axel Preston, Discharge: Date of : 33 Report #: [id number] THIS REPORT FOR: //name// CC: Delia Sujata Preston DATE OF SERVICE: 05/25/2018 REASON FOR CONSULTATION: Colon cancer, nausea, vomiting, diarrhea. REQUESTING PHYSICIAN: Kalyan Hernández DO. HISTORY OF PRESENT ILLNESS: The patient is a very pleasant 83-year-old woman with stage 3 colon cancer who is undergoing adjuvant chemotherapy. She initiated first cycle of adjuvant Xeloda 2 weeks ago. She tolerated first week very well. She was taking 1500 mg twice a day, 14 days on and 7 days off schedule. After 10 days, she started having nausea, vomiting and diarrhea. She called to the office. She was instructed to discontinue Xeloda and recommendations for antiemetics and anti-diarrhea. Treatment was given. She was admitted to the hospital with persistent nausea, vomiting and diarrhea. Oncology consult is requested. She started Lomotil this morning per my recommendations. She is doing better, she says this afternoon. She does not have nausea or vomiting. She is n.p.o. She is taking only ice chips. She is on IV fluids. Currently, IV fluids have been discontinued. She has complaints of dry mouth. She admits that she had mouth sores very mild, but used baking soda and salt solution she does not have fevers or chills. Denies skin rash. PAST MEDICAL HISTORY: Significant for stage 3 colon cancer, hypertension. SOCIAL HISTORY: She does not smoke, does not drink alcohol. She rates her performance status as ECOG 0. PHYSICAL EXAMINATION: GENERAL: Reveals a well-developed, well-nourished female, not in acute distress. VITAL SIGNS: Blood pressure 118/50, heart rate is 62, temperature 97.4, respiration 18. HEENT: Does not reveal thrush. LUNGS: Clear. ABDOMEN: Soft, somewhat tender diffusely on deep palpation. Bowel sounds decreased. EXTREMITIES: Lower extremity, no edema. MENTAL STATUS: Alert, oriented x 3. MOUTH: Mucosa [place] [address] CONSULTATION Name: YASHIRA BAXTER Room: [address] IN [facility]#: [id number] Admission: 05/23/18 Attend Phys: Axel Preston, Discharge: Date of : 33 Report #: [id number] LABORATORY DATA: White count 8.5, hemoglobin 12.2, platelets 161. Sodium 141, potassium 3.3, BUN 18, creatinine 0.7. ASSESSMENT AND PLAN: 1. Diarrhea, most likely secondary to Xeloda, Xeloda has been discontinued. Continue Lomotil as for now. 2. Nausea and vomiting. I agree with antiemetics p.r.n. 3. Dehydration. Continue IV fluids while the patient cannot take p.o. fluids. 4. Colon cancer, high risk of recurrence, we will try to reinitiate Xeloda at 70% dose reduction after she recovers from the toxicity. 5. PT, OT agree. Thank you very much for allowing me to participate in care of this patient. <ELECTRONICALLY SIGNED> By: Nixon Haywood MD 05/27/18 1504 1556 0645Nixon Haywood MD /nt
--- NOTE | 2018-05-27 16:10 | CON ---
[address] [address] CONSULTATION Name: YASHIRA BAXTER Room: [address] IN M.R.#: [id number] Admission: 05/23/18 Attend Phys: Axel Preston, Discharge: Date of : 31 Report #: [id number] THIS REPORT FOR: //name// CC: Melani Livingston MD [facility] Delia Preston MD DATE OF SERVICE: 05/24/2018 REFERRING PHYSICIAN: Axel Preston MD IMPRESSION: 1. Nausea, vomiting, diarrhea - suspect chemotherapy related since her Clostridium difficile toxin assay was negative. 2. Status post sigmoid resection with primary anastomosis on the 03/30 for stage III colon cancer. 3. Dehydration secondary to #1. 4. Polymyalgia rheumatica, requiring chronic steroids. RECOMMENDATIONS: 1. Agree with the patient being admitted for IV fluids to the hospital for IV fluids, antiemetics, etc. since she failed outpatient treatment. 2. Begin the patient on a clear liquid diet, advance as tolerated. 3. The patient may need to have some adjustment of her chemotherapy and determine whether or not she can tolerate the same. 4. Endoscopic evaluation at this time. HISTORY OF PRESENT ILLNESS: This is a very pleasant 83-year-old white female with a history of recently diagnosed colon cancer who was undergoing chemotherapy for the same as of 05/13 who was admitted to the hospital because of intractable nausea, vomiting, and diarrhea. She received chemo on 05/13 and has been on oral Xeloda since that time. She has had lot of problem with oral intake, lightheadness, dizziness, dehydration between nausea, vomiting, and diarrhea. She was tried on Zofran and Compazine and cannot keep those down. She was admitted to the hospital because of severe dehydration and weakness. As I mentioned above, she recently underwent surgical intervention for colon cancer involving sigmoid colon with a sigmoid colectomy with primary anastomosis. She had metastatic implants outside of the colon. For this reason, she was begun on chemotherapy under the direction of Dr. Haywood. She has not been on any antibiotics, nor exposed to [place] [address] CONSULTATION Name: YASHIRA BAXTER Room: [address] IN [facility]#: [id number] Admission: 05/23/18 Attend Phys: Axel Preston, Discharge: Date of : 33 Report #: [id number] contacts. ALLERGIES: None. MEDICATIONS: Include aspirin, Uloric, multivitamin, and prednisone. PAST MEDICAL AND SURGICAL HISTORY: Remarkable for polymyalgia rheumatica. She has history of calcific aortic stenosis and underwent a bioprosthetic aortic valve replacement in 2013. She has previous cholecystectomy, appendectomy, hysterectomy, previous knee and ankle surgery and recent sigmoid colon resection. SOCIAL HISTORY: The patient is with recently since October of this year. She does not smoke or drink. FAMILY HISTORY: Negative. PHYSICAL EXAMINATION: GENERAL: She is a pleasant 83-year-old white female who is in no distress at this time. CARDIOPULMONARY: Revealed regular rate and rhythm. LUNGS: Clear. ABDOMEN: Soft. She was not particularly tender. No rebound or guarding noted. LABORATORY DATA: Revealed white count of 18.2, hemoglobin 13.2, platelet count 201,000, MCV is 93, RDW is 13.3. Her INR is 1.1. Sodium 139, potassium 3.5, chloride 106, bicarbonate is 23, BUN is 20, creatinine 0.9. Her GFR is 60. Total bilirubin 0.4, alkaline phosphatase is 54, AST 49, ALT 41. Her albumin is 3.0. IMAGING DATA: CT scan was reviewed and revealed postsurgical changes and was otherwise unremarkable. DISCUSSION: At the present time, we are not terribly impressed with anything of concern apart from this is chemo related and just we will need to wait it and see whether or not she can tolerate any type of adjuvant chemotherapy. I discussed the plan with the patient as well and endoscopic studies unless she has problems that would require the same. <ELECTRONICALLY SIGNED> By: Salo Darling DO 05/27/18 1610 1836 0344Salo Darling DO /nt
[2018-05-27] MEDS ORDERED: COMPAZINE10 MG PO (16:19)
[2018-05-27 16:34] VITALS: BP 114/44
[2018-05-27] MEDS ORDERED: PEPCID20 MG PO (16:51)
== END 2018-05-27 17:00 | disposition home or self-care (01) | DRG 391 ==
LOC: M.ERS 21:51 → M.TBA-ER 23:23 → M.2W 23:23 → M.3W 23:23 → M.2W 05-24 00:30 → M.3W 05-24 16:51
PROVIDERS: Emergency Medicine; ADMIT Family Medicine
DX: A08.4 Viral intestinal infection, unspecified (principal); E43 Unspecified severe protein-calorie malnutrition; R65.10 Systemic inflammatory response syndrome (SIRS) of non-infectious origin without acute organ dysfunction; C18.9 Malignant neoplasm of colon, unspecified; E87.6 Hypokalemia; E83.42 Hypomagnesemia; E86.0 Dehydration; M35.3 Polymyalgia rheumatica; I10 Essential (primary) hypertension; Z96.652 Presence of left artificial knee joint; Z90.49 Acquired absence of other specified parts of digestive tract; Z95.2 Presence of prosthetic heart valve; Z90.710 Acquired absence of both cervix and uterus; Z88.2 Allergy status to sulfonamides; Z83.6 Family history of other diseases of the respiratory system; Z79.52 Long term (current) use of systemic steroids; Z68.28 Body mass index [BMI] 28.0-28.9, adult

== ENCOUNTER 2018-08-06 22:19 | Inpatient (IN) | payer MEDICARE, OTHER ==
[~2018-08-06] VITALS: Ht 157.5 cm; Wt 61.7 kg
--- NOTE | ~2018-08-06 | PROC ---
[address] [address] PROCEDURE REPORT Name: YASHIRA BAXTER Room: [address] IN M.R.#: [id number] Admission: 08/06/18 Attend Phys: Carmela Banegas Discharge: Date of : 33 Report #: [id number] THIS REPORT FOR: //name// For GI report, please see the Provation report in Perceptive 7 content. By: [id number] Records Staff DELORES /JAC
--- NOTE | ~2018-08-06 | CON ---
[address] [address] CONSULTATION Name: YASHIRA BAXTER Room: [address] IN M.R.#: [id number] Admission: 08/06/18 Attend Phys: Carmela Banegas Discharge: Date of : 31 Report #: [id number] THIS REPORT FOR: //name// CC: Delia Hernández DATE OF SERVICE: 08/07/2018 HISTORY OF PRESENT ILLNESS: This is a pleasant 83-year-old female with past medical history of stage 3 colon cancer, undergoing adjuvant chemotherapy, presented to the hospital with abdominal pain, nausea, vomiting. The patient presents with these symptoms. Now, the patient has chemotherapy and usually has to be admitted for dehydration. The patient has had these symptoms for the last 10 days and has had decreased p.o. intake and decreased urine output because of this. The patient additionally reports that she has had diarrhea for several months since her hemicolectomy last year, and this has progressively worsened over the last 7-10 days. The patient denies any hematemesis or hematochezia. PAST MEDICAL HISTORY: Colon cancer stage 3, status post hemicolectomy in 2018. PAST SURGICAL HISTORY: Appendectomy, cholecystectomy, aortic valve replacement, left total knee replacement and hysterectomy. FAMILY HISTORY: There is no family history of colon cancer. Mother had a possible stroke and father had COPD. SOCIAL HISTORY: The patient denies smoking, alcohol or recreational drug use. REVIEW OF SYSTEMS: A comprehensive 10-point review of systems is negative except for what was mentioned in the HPI. PHYSICAL EXAMINATION: GENERAL: The patient is alert, awake, oriented x 3. HEENT: Pupils are equal, round, reactive to light and accommodation. Mucous membranes are moist. There is no congestion. LUNGS: Clear to auscultation bilaterally. CARDIOVASCULAR: Rate and rhythm regular, S1, S2 present. ABDOMEN: Soft. There is no distention, guarding or rigidity. EXTREMITIES: Warm, well perfused. There is trace pitting edema bilaterally. VITAL SIGNS: Temperature 36.7, pulse rate 66, respirations 18, blood pressure 100/36, pulse ox 98% on room air. LABORATORY DATA: Hemoglobin 12.1, hematocrit 36.1, platelet count 173, WBC count 5.9. BUN 18, creatinine 1.1 on presentation. Abdomen and pelvis CT performed demonstrates unchanged bilateral lower lobe atelectasis with chronic scarring and small pleural effusion, small [place] [address] CONSULTATION Name: YASHIRA BAXTER Room: [address] [place] [facility]#: [id number] Admission: 08/06/18 Attend Phys: Carmela Banegas Discharge: Date of : 33 Report #: [id number] chronic cirrhosis. Gallbladder surgically absent. Moderate amount of intra-abdominal ascites, unchanged bowel, aortic aneurysm. ASSESSMENT AND PLAN: A pleasant 83-year-old female with stage 3 colon cancer, presented with nausea, vomiting, abdominal pain and diarrhea following chemotherapy. I suspect her symptoms are related to ongoing chemotherapy, but we will perform an EGD to rule out mucosal disease. The patient also noted to have a nodular liver with ascites and this is suggestive of presence of cirrhosis. I would get an ultrasound-guided paracentesis to evaluate the cause of the cirrhosis, and we will place her on a small dose of diuretics, which was found to be transudative. Also, plan on getting a hepatitis serology so that the patient can get vaccinated as outpatient. The patient was seen and examined on 08/07/2018 and this note reflects that day of examination. By: [id number] Mcclure MD /nt
[~2018-08-06 22:19] MED LIST changes: +ASPIR 8181 MG PO; +COMPAZINE10 MG PO; +LOMOTIL TABLET1 EACH PO; +PEPCID20 MG PO; +ZOFRAN ODT4 MG PO
[2018-08-06 22:35] VITALS: BP 136/54
[2018-08-06 22:55] LABS: ABSOLUTE LYMPHOCYTES 2.5 thou/uL (0.8-5.3); ABSOLUTE MONOCYTES 0.7 thou/uL (0.0-1.2); ABSOLUTE NEUTROPHILS 2.7 thou/uL (1.6-8.1); BASOPHILS 0.1 %; EOSINOPHILS 0.5 %; HEMATOCRIT 36.1 % (37.0-47.0); HEMOGLOBIN 12.1 gm/dL (12.0-15.0); LYMPHOCYTES 41.6 %; MCH 33.7 pg (26.0-34.0); MCHC 33.6 g/dL (28.0-37.0); MCV 100.4 fL (80.0-100.0); MONOCYTES 12.4 %; MPV 8.6 fl. (7.2-11.1); NUCLEATED RBCS 0 /100WBC; PLATELET COUNT* 173 thou/uL (150-400); POLYS 45.4 %; RDW-CV 23.8 % (10.5-14.5); WBC 5.9 thou/uL (4.0-11.0)
[2018-08-06 23:03] LABS: CALCIUM 8.4 mg/dL (8.5-10.1); CREATININE 1.1 mg/dL (0.6-1.3)
[2018-08-06 23:07] LABS: ALBUMIN 2.5 g/dL (3.4-5.0); MAGNESIUM 1.4 mg/dL (1.8-2.4); TOTAL BILIRUBIN 1.3 mg/dL (<0.1-1.0); TOTAL PROTEIN 5.5 g/dL (6.4-8.2)
[2018-08-06 23:09] LABS: POTASSIUM 2.8 mmol/L (3.5-5.1)
[2018-08-07 01:05] VITALS: BP 107/58; BP 114/38
[2018-08-07 04:30] LABS: ANISOCYTOSIS 1+; MACROCYTES 1+; POIKILOCYTOSIS 1+
[2018-08-07 04:31] LABS: OVALOCYTES Occasional
[2018-08-07 04:33] LABS: MICROCYTES Occasional; SCHISTOCYTES 2+
--- NOTE | 2018-08-07 05:39 | NUR ---
REPORT RECIEVED FROM ER. PT ADMITTED TO ROOM 315. PT ORIENTED TO ROOM, CALL LIGHT SHOWN, FALL AGREEMENT WENT OVER, PT STATED UNDERSTANDING. ADMISSION DOCUMENTED. MEDS GIVEN PER E-MAR. IV'S PATENT. FLUIDS INFUSING. NO REPORTS OF PAIN EXCEPT WHEN SHE NEEDS TO HAVE A BM. WILL CONTINUE WITH PLAN OF CARE.
[2018-08-07 06:01] LABS: POTASSIUM 3.3 mmol/L (3.5-5.1)
--- NOTE | 2018-08-07 06:54 | NUR ---
PTS DAUGHTER STATES THAT PATIENT TAKES XELODA CHEMO PILLS FOR 12 DAYS IN 3 WEEK CYCLE. AND ALSO TAKES OXIPLATIN IN THE CLINIC EVERY 3 WEEKS AND RECIEVED HER LAST DOSE 2 WEEKS AGO.
[2018-08-07 07:30] VITALS: BP 110/36
[2018-08-07 13:35] LABS: HEMATOCRIT 33.3 % (37.0-47.0); HEMOGLOBIN 11.3 gm/dL (12.0-15.0); MCH 34.3 pg (26.0-34.0); MCHC 33.9 g/dL (28.0-37.0); MPV 9.9 fl. (7.2-11.1); RBC 3.29 mil/uL (4.20-5.00); RDW-CV 24.2 % (10.5-14.5)
[2018-08-07 16:00] VITALS: BP 100/36
--- NOTE | 2018-08-07 16:56 | NUR ---
PATIENT REMAINS ON CLEAR LIQIUDS. NAUSEA EPISODE X 1 THIS AM, PRN ZOFRAN ORDERED AND GIVEN. IVF INFUSING, PRN POTASSIUM REPLACMENT GIVEN THIS SHIFT, REDRAW AT 1900 PER PROTOCOL. PATIENT HAD PARACENTESIS DONE THIS EVENING, RIGHT ABD BANDAGE NOTED, C/D/I. PATIENT TO BE NPO AFTER MIDNIGHT FOR EGD IN AM. SAMPLE COLLECTED FOR CDIFF PER DR. SUAZO, AFTER SAMPLE COLLECTED ORDERS FOR ONE TIME DOSE OF IMMODIUM TO BE GIVEN. DR. SUAZO TO BE NOTIFIED IF PATIENT CONTINUES TO HAVE DIARRHEA.
--- NOTE | 2018-08-07 17:08 | NUR ---
SPOKE TO THE PATIENT TO DISCUSS HER HOME SITUATION, DISCHARGE PLANNNING, AND TO INFORM OF THE ROLE OF CM. PATIENT ALERT, ORIENTED, AND INDEPENDENT WITH ADL'S. PATIENT DRIVES OCCATIONALLY. PATIENT RESIDES IN AN APARTMENT ABOVE HER DTR'S HOME. PATIENT OWNS A WLAKER, CANE AND W/C BUT DOES NOT NEED TO USE THEM FOR MOBILITY. PATIENT HAS A HX OF HH WITH [facility]. PATIENT HAS A HX OF SNF AT [facility]. PATIENT PLANS TO RETURN HOME AT D/C, AND INFORMS THAT ANY ARRANGEMENTS AT D/C WILL NEED TO FO THROUGH HER DR GILLIAN MARQUEZ. CM WILL REMAIN AVIALABLE TO ASSIST AND FOLLOW NEEDED.
[2018-08-07 18:17] LABS: BF RBC <1000 /mm3; TOTAL CELL COUNT 130 /mm3
[2018-08-07 18:21] LABS: TOTAL VOLUME 500 ml
[2018-08-07 18:22] LABS: CLARITY HAZY; COLOR AMBER
[2018-08-07 18:58] LABS: BF POLYS 34 %; SOURCE PARACENTESIS
[2018-08-07 18:59] LABS: BF LYMPHOCYTES 30 %; BF TISSUE 36 /100 WBC
[2018-08-08] VITALS: BP 108/32
[2018-08-08 04:38] LABS: HEMATOCRIT 29.8 % (37.0-47.0); HEMOGLOBIN 10.2 gm/dL (12.0-15.0); MCH 34.6 pg (26.0-34.0); MCHC 34.2 g/dL (28.0-37.0); MCV 101.3 fL (80.0-100.0); MPV 8.5 fl. (7.2-11.1); RBC 2.95 mil/uL (4.20-5.00); RDW-CV 25.2 % (10.5-14.5); WBC 3.7 thou/uL (4.0-11.0)
[2018-08-08 04:52] LABS: ALBUMIN 1.9 g/dL (3.4-5.0); CALCIUM 7.6 mg/dL (8.5-10.1); CREATININE 0.8 mg/dL (0.6-1.3); MAGNESIUM 1.7 mg/dL (1.8-2.4); POTASSIUM 3.9 mmol/L (3.5-5.1); TOTAL BILIRUBIN 0.8 mg/dL (<0.1-1.0); TOTAL PROTEIN 4.2 g/dL (6.4-8.2)
--- NOTE | 2018-08-08 05:18 | NUR ---
PATIENT SLEPT WELL DURING THIS SHIFT. PT UP TO BSC WITH STANDBY. PT WITH FLUIDS INFUSING IN RT AC PER DR ORDER. PT HAS SALINE LOCK IN RT HAND. PT HAS HAD NO LOOSE STOOLS DURING THIS SHIFT. PT HAS BEEN NPO SINCE MIDNIGHT. FREQUENTLY USED ITEMS AND CALL LIGHT WITHIN REACH. SIDERAILS UPX2. WILL CONTINUE TO MONITOR.
[2018-08-08 05:23] VITALS: BP 108/32
--- NOTE | 2018-08-08 11:18 | NUR ---
ATTEMPTED TO SEE PT. FOR OT EVAL AT 11:12, PT. NOT IN ROOM. NURSING STATES PT. IS AT TESTING.
[2018-08-08 12:40] VITALS: BP 122/52
[2018-08-08 16:53] VITALS: BP 102/38
[2018-08-09] VITALS: BP 104/53
[2018-08-09 08:00] VITALS: BP 103/39
[2018-08-09 16:00] VITALS: BP 119/46
--- NOTE | 2018-08-09 20:53 | NUR ---
I ASSUMED CARE OF THE PATIENT AT 0700. SHE IS ALERT AND ORIENTED X4 AND IS UP SBA AND A WALKER. BED IS IN THE LOW LOCKED POSITION AND CALL LIGHT IS IN REACH. HOURLY ROUNDING WAS COMPLETED AND PATIENT NEEDS ARE MET. PAIN IS DENIED. SHE DID WELL WITH REGLAN. FLUIDS ARE INFUSING. PATIENT RESULTS AND NEEDS ARE DISCUSSED WITH HER DAUGHTER. WILL CONTINUE TO MONITOR.
[2018-08-10] VITALS: BP 126/60
[2018-08-10 04:03] LABS: CREATININE 0.9 mg/dL (0.6-1.3); MAGNESIUM 1.9 mg/dL (1.8-2.4); POTASSIUM 3.2 mmol/L (3.5-5.1)
[2018-08-10 04:09] LABS: HEMOGLOBIN 10.9 gm/dL (12.0-15.0); MCH 34.6 pg (26.0-34.0); MCHC 34.1 g/dL (28.0-37.0); MCV 101.5 fL (80.0-100.0); MPV 8.7 fl. (7.2-11.1); RBC 3.16 mil/uL (4.20-5.00); RDW-CV 26.3 % (10.5-14.5); WBC 4.1 thou/uL (4.0-11.0)
[2018-08-10 05:27] LABS: CALCIUM 7.6 mg/dL (8.5-10.1)
--- NOTE | 2018-08-10 07:02 | NUR ---
PATIENT SLEPT WELL DURING THIS SHIFT. PT USES CALL LIGHT APPROPRIATELY FOR ASSISTANCE TO BSC. PT VOIDS YELLOW URINE. PT DENIES PAIN/NAUSEA ON THIS SHIFT. FLUIDS INFUSING PER DR ORDER. FREQUENTLY USED ITEMS AND CALL LIGHT WITHIN REACH. SIDERAILS UPX2. WILL CONTINUE TO MONITOR.
[2018-08-10 07:50] VITALS: BP 120/68
[2018-08-10 15:10] LABS: HEPATITIS B SURFACE AG Negative (Negative)
[2018-08-10 15:13] VITALS: BP 96/45
--- NOTE | 2018-08-10 17:27 | NUR ---
PATIENT UP TO CHAIR FOR MEALS. NO COMPLAINTS OF NAUSEA OR PAIN. LARGE SOFT BM NOTED THIS AM VIA BSC. IVF REMAINS INFUSING. MG AND K+ REPLACED PER ORDERS. PATIENT APPETITE REMAINS POOR AT TIMES, DRINKING ENSURE REPLACMENT SHAKES.
[2018-08-11 00:05] VITALS: BP 144/52
[2018-08-11 04:55] LABS: CALCIUM 7.7 mg/dL (8.5-10.1); CREATININE 0.8 mg/dL (0.6-1.3); MAGNESIUM 1.9 mg/dL (1.8-2.4); POTASSIUM 3.9 mmol/L (3.5-5.1)
[2018-08-11 06:20] LABS: URINE BILIRUBIN NEGATIVE (Negative); URINE BLOOD NEGATIVE (Negative); URINE CLARITY CLEAR; URINE COLOR YELLOW; URINE GLUCOSE-RANDOM NEGATIVE (Negative); URINE KETONES NEGATIVE (Negative); URINE LEUKOCYTES-REFLEX 1+ (Negative); URINE PROTEIN NEGATIVE (Negative); URINE SPECIFIC GRAVITY <= 1.005 (1.005-1.030); URINE UROBILINOGEN 0.2 E.U./dl (0.2-1.0)
[2018-08-11 06:21] LABS: URINE NITRITE-REFLEX POSITIVE (Negative)
--- NOTE | 2018-08-11 06:39 | NUR ---
PT SLEPT WELL OVERNIGHT, UP WITH ASSIST TO BSC TO VOID, BM THIS MORNING. UA SENT TO LAB, ATTEMPTED TO OBTAIN STOOL SPECIMEN BUT UNSUCCESSFULL. PT CO SOME NAUSE THIS MORNING, WITHOUT EMESIS, SCHEDULED REGLAN AND PROTONIX GIVEN. AM LABS DRAWN. RAC IVF INFUSING PER PUMP WITHOUT DIFFICULTY. RWRIST SL. PT ABLE TO USE CALL LITE AND MAKE NEEDS KNOWN, CALL LITE IN EASY REACH.
[2018-08-11 06:50] LABS: SQUAMOUS 0-3 Few /LPF (0-3)
[2018-08-11 06:51] LABS: BACTERIA-REFLEX >30 Many /HPF (None Seen); CASTS None Seen /LPF (None Seen); CRYSTALS None Seen /LPF (None Seen); MUCUS 0-3 Light strn/LPF (None Seen); URINE RBC 0-2 Rare /HPF (0-2)
[2018-08-11 08:15] VITALS: BP 102/37
[2018-08-11 15:49] VITALS: BP 105/47
--- NOTE | 2018-08-11 16:58 | NUR ---
PATIENT GIVEN PRN ZOFRAN FOR NAUSEA. PATIENT DID HAVE A DRY HEAVING EPISODE BUT NOT VOMITTING. STOOL HAS BEEN SOFT UNFORMED. PATIENT HAS POOR PO INTAKE. ROCEPHIN STARTED IV FOR UTI, IVF REMAINS INFUSING. UP TO [facility] WITH ASSISTANCE. PATIENT SAT IN CHAIR MULTIPLE TIMES THIS SHIFT.
[2018-08-11 20:00] VITALS: BP 161/80
[2018-08-12 04:59] LABS: APTT 34.3 Seconds (25.0-31.3); INR 1.3; PROTIME 13.8 Seconds (9.20-11.50)
--- NOTE | 2018-08-12 05:40 | NUR ---
ASSUMED PATIENT CARE AT 1900. PATIENT ALERT AND ORIENTED TIMES FOUR. NO COMPLAINTS OF PAIN. STATES THAT HER NAUSEA HAS PASSED. IV PATENT. HOURLY ROUNDING AND SILVICULTURE TEACHER COMPLETED DOCUMENTED.
[2018-08-12 07:00] LABS: ALBUMIN 1.9 g/dL (3.4-5.0); CALCIUM 8.1 mg/dL (8.5-10.1); CREATININE 0.8 mg/dL (0.6-1.3); MAGNESIUM 1.9 mg/dL (1.8-2.4); POTASSIUM 4.3 mmol/L (3.5-5.1); TOTAL PROTEIN 4.3 g/dL (6.4-8.2)
[2018-08-12 08:26] VITALS: BP 108/38
[2018-08-12 14:37] VITALS: BP 115/52
--- NOTE | 2018-08-12 15:23 | CON ---
[facility] [address] [place] [address] CONSULTATION Name: YASHIRA BAXTER Room: [address] IN M.R.#: [id number] Admission: 08/06/18 Attend Phys: Carmela Banegas Discharge: Date of : 33 Report #: [id number] THIS REPORT FOR: //name// CC: Delia Hernández DATE OF SERVICE: 08/07/2018 REASON FOR CONSULTATION: Intractable nausea, vomiting, colon cancer. REQUESTING PHYSICIAN: Kalyan Hernández DO. HISTORY OF PRESENT ILLNESS: The patient is a very pleasant 83-year-old woman who is undergoing adjuvant chemotherapy for stage 3 colon cancer. She has been having toxicities related to chemotherapy including intractable nausea, vomiting and at times diarrhea. She has been hospitalized for these reasons. She had last cycle of chemotherapy #4, with reduced dose of oxaliplatin and Xeloda. She developed nausea, severe anorexia, vomiting. She was [facility] with intravenous fluids and intravenous antiemetics. Regardless, last night, she developed intractable vomiting, diarrhea, and she was brought to the hospital by her daughter, Dr. Delia Ernst. Oncology consult is requested. She is doing okay. This morning, she does not have vomiting, but she is n.p.o. She has complaints of nausea, diarrhea. She had 3 bowel movements. She has mild cramping before diarrhea, but does not have foul smelling stool. Denies fever or chills. Denies mouth sores. PAST MEDICAL HISTORY: Significant for colon cancer as per HPI, hypertension. SOCIAL HISTORY: She had very good performance status prior to initiation of chemotherapy. Does not smoke, has very supportive family. REVIEW OF SYSTEMS: See above. PHYSICAL EXAMINATION: GENERAL: Reveals a well-developed, well-nourished female, not in acute distress. VITAL SIGNS: Blood pressure 110/36, heart rate is 67, temperature 97.6, respirations 18. HEENT: Does not reveal thrush. There is no supraclavicular lymphadenopathy. HEART: Normal S1, S2. LUNGS: Clear. ABDOMEN: Soft. Bowel sounds are somewhat diminished. Abdomen tender diffusely, more pronounced tenderness in the left upper quadrant of the abdomen. MENTAL STATUS: Alert, [place] [address] [address] CONSULTATION Name: YASHIRA BAXTER Room: [address] IN [facility]#: [id number] Admission: 08/06/18 Attend Phys: Carmela Banegas Discharge: Date of : 33 Report #: [id number] LABORATORY DATA: White count 5.9, hemoglobin 12.1, platelets 173. Sodium 139, potassium 3.3, BUN 18, creatinine 1.1, total bilirubin 1.5. AST 82, ALT 30, alkaline phosphatase 137. CT of abdomen and pelvis shows nodular liver consistent with chronic liver cirrhosis, moderate ascites. Spleen normal. No bowel obstruction, no abnormal masses. ASSESSMENT AND PLAN: 1. Colon cancer. She cannot tolerate adjuvant chemotherapy. Chemotherapy will be discontinued permanently. 2. Liver cirrhosis, possibly finding secondary to oxaliplatin. We will discontinue oxaliplatin. Hopefully, this will stop progression of liver disease. 3. Agree with GI consult. I discussed this case with GI, is planning to do a diagnostic paracentesis. I doubt that she has metastatic colon cancer. 4. Nausea, vomiting, Zofran and Phenergan as needed. 5. Diarrhea, Clostridium difficile is pending. Lomotil as needed. Thank you very much for allowing me to participate in care of this patient. <ELECTRONICALLY SIGNED> By: Nixon Haywood MD 08/12/18 1523 1229 [id number] Haywood MD /nt
--- NOTE | 2018-08-12 16:08 | PATH ---
[address] [address] PATHOLOGY RPT PROCEDURE Name: YASHIRA BAXTER Room: [address] IN ..#: [id number] Admission: 08/06/18 Date of : 33 Discharge: Report #: [id number] Path Case #: [id number] Note [facility] Accession Number: [id number] TESTS RESULT FLAG UNITS REF RANGE LAB Clinician Provided Cytology Information No. of containers..01 Other (Miscellaneous) Source: 01 ASCITES Clinician ICD10: 01 R11.2 DIAGNOSIS: 02 ASCITES NO MALIGNANT CELLS. SCANT CELLULARITY WITH CELLULAR DEGENERATION. FEW MESOTHELIAL CELLS AND INFLAMMATORY CELLS. THIS INTERPRETATION INCLUDES EVALUATION OF A CELL BLOCK. Signed out by: 02 Bin Lincoln MD, Pathologist NPI- [id number] Performed by: 01 Rocky Ayers, Edging Supervisor ([facility]) Gross description: 01 30 ML, LIGHT YELLOW, CLEAR /LCS FLAG LEGEND: L-Low Normal,H-High Normal,LL-Alert Low,HH-Alert High <-Panic Low,>-Panic High,A-Abnormal,AA-Critical Abnormal Performed at: [address] [place] [address] Richi Akhtar MD, [address] [place] [phone] Bin Lincoln MD, Specimen Comment: A courtesy copy of this report has been sent to Specimen Comment: [phone]. Specimen Comment: Report sent to Specimen Comment: A duplicate report has been generated due to demographic updates. Performed at: [address], [place], [place] [address] MD Richi Akhtar MD Phone: [phone]
--- NOTE | 2018-08-12 16:31 | NUR ---
PATIENT TOLERATING REG DIET. PATIENT EATING ABOUT 25% OF MEALS. IVF REMAINS INFUSING, SCHED ABX INFUSED ORDERED. UP TO BSC WITH ASSISTANCE. NO COMPLAINTS OF ABD PAIN THIS SHIFT.
--- NOTE | 2018-08-12 16:53 | NUR ---
NO NAUSEA/VOMITTING OR DIARRHEA THIS SHIFT. PATIENT UP TO CHAIR FOR LONG PERIODS OF TIME. IVF AND SCHED ABX INFUSED ORDERED. PATIENT TOLERATING APPROX 25% OF MEALS. POSSIBLE DISCHARGE HOME SOON.
[2018-08-12 17:38] LABS: SOURCE PARACENTESIS
[2018-08-12 20:00] VITALS: BP 118/47
--- NOTE | 2018-08-13 05:16 | NUR ---
ASSUMED PATIENT CARE AT 1900. PATIENT ALERT AND ORIENTED TIMES FOUR. MINOR COMPLAINTS OF STOMACH PAIN, LOMOTIL GIVEN AND PATIENT VERBALIZES THAT IT HELPS A GREAT DEAL. PATIENT HAS SMALL AREA OF REDNESS ON RIGHT SHOULDER FROM PRESSURE PATIENT LIKES TO SLEEP ON HER RIGHT SIDE. PATIENT ENCOURAGED TO SLEEP ON HER LEFT SIDE AND CHANGE POSITION OFTEN. PATIENT VERBALIZES UNDERSTANDING OF THIS. ABLE TO TRANSFER TO [facility] WITH MIN ASSISST OF STAFF. METER REPAIR SHOP SUPERVISOR AND HOURLY ROUNDING COMPLETED CHARTED. FALL RISK PRECAUTIONS IN PLACE.
[2018-08-13 09:00] VITALS: BP 107/43
[2018-08-13 10:15] LABS: HEMATOCRIT 32.6 % (37.0-47.0); MCH 34.9 pg (26.0-34.0); MCHC 33.8 g/dL (28.0-37.0); MCV 103.2 fL (80.0-100.0); MPV 10.9 fl. (7.2-11.1); NUCLEATED RBCS 0 /100WBC; PLATELET COUNT* 72 thou/uL (150-400); RBC 3.15 mil/uL (4.20-5.00); RDW-CV 26.4 % (10.5-14.5); WBC 5.4 thou/uL (4.0-11.0)
[2018-08-13 10:21] LABS: CALCIUM 8.1 mg/dL (8.5-10.1); CREATININE 0.9 mg/dL (0.6-1.3); POTASSIUM 3.6 mmol/L (3.5-5.1)
[2018-08-13] MEDS ORDERED: KEFLEX500 M1 PO (11:07)
[2018-08-13 11:09] LABS: ABSOLUTE EOSINOPHILS 0.2 thou/uL (0.0-0.7); ABSOLUTE LYMPHOCYTES 0.9 thou/uL (0.8-5.3); ABSOLUTE MONOCYTES 1.2 thou/uL (0.0-1.2); ABSOLUTE NEUTROPHILS 3.1 thou/uL (1.6-8.1); ANISOCYTOSIS 2+; BURR CELLS 2+; METAMYELOCYTES 1 %; SCHISTOCYTES 1+
[2018-08-13 11:12] VITALS: BP 107/43
[2018-08-13 11:13] VITALS: BP 107/43
--- NOTE | 2018-08-13 12:34 | NUR ---
PATIENT IS ALERT AND ORIENTED TODAY VERY PLEASANT. VITAL SIGNS STABLE ON ROOM AIR. NO COMPLAINTS OF ANY KIND TODAY, PATIENT IS BEING IDSCHARGED TO HOME WITH HOME HEALTH. DISCHARGE INSTRUCTIONS GIVEN AND PRESCRIPTIONS GIVEN TO PATIENT AND MOTHER. LEFT VIA WHEEL CHAIR TO HOME WITH HOME HEALTH.
[2018-08-13 12:36] VITALS: BP 107/43
[2018-08-13 12:38] VITALS: BP 107/43
--- NOTE | 2018-08-13 12:39 | NUR ---
Pt to dc home with dtr today. Pt/pt family preference for [facility] services to follow. SW faxed referral and dc orders, med list to [facility] HH intake. Pt dtr here to provide pt ride home.
--- NOTE | 2018-08-14 11:09 | CON ---
[facility] [address] [place] [address] CONSULTATION Name: YASHIRA BAXTER Room: [address] IN M.R.#: [id number] Admission: 08/06/18 Attend Phys: Carmela Banegas Discharge: 08/13/18 Date of : 33 Report #: [id number] THIS REPORT FOR: //name// CC: Delia Sujata Hernández DATE OF SERVICE: 08/13/2018 SUBJECTIVE: The patient is doing better. She does not have complaints of nausea, vomiting or diarrhea. Has mild pain in lower abdomen/suprapubic area. She is on antibiotics. Does not have fever. OBJECTIVE: VITAL SIGNS: Blood pressure 107/43, heart rate is 98.5, respiration 18, heart rate 79. HEART: Normal S1, S2. LUNGS: Clear. ABDOMEN: No guarding, no rebound. LABORATORY DATA: Pending. ASSESSMENT AND PLAN: 1. Urinary tract infection. Agree with management. 2. Nausea and vomiting, improved. Continue current management. 3. Colon cancer. Chemotherapy is discontinued because of poor tolerance. I plan to see patient for followup in 2 weeks in my office after discharge. <ELECTRONICALLY SIGNED> By: Nixon Haywood MD 08/14/18 1109 1003 Rudy Haywood MD /nt
== END 2018-08-13 12:36 | disposition home health service (06) | DRG 391 ==
LOC: M.ERS 22:19 → M.TBA-ER 23:52 → M.3W 23:52
PROVIDERS: Emergency Medicine; Family Medicine; Internal Medicine Gastroenterology; ADMIT Internal Medicine
PROC: 0W9G3ZZ Drainage of Peritoneal Cavity, Percutaneous Approach (ICD-10-PCS; principal; 2018-08-07)
PROC: 0DJ08ZZ Inspection of Upper Intestinal Tract, Via Natural or Artificial Opening Endoscopic (ICD-10-PCS; 2018-08-08)
DX: R11.2 Nausea with vomiting, unspecified (principal); E43 Unspecified severe protein-calorie malnutrition; N39.0 Urinary tract infection, site not specified; I85.00 Esophageal varices without bleeding; D61.818 Other pancytopenia; R18.8 Other ascites; C18.9 Malignant neoplasm of colon, unspecified; K74.60 Unspecified cirrhosis of liver; Z96.652 Presence of left artificial knee joint; E87.6 Hypokalemia; E83.42 Hypomagnesemia; E53.8 Deficiency of other specified B group vitamins; Z90.49 Acquired absence of other specified parts of digestive tract; Z95.2 Presence of prosthetic heart valve; Z90.710 Acquired absence of both cervix and uterus; Z88.2 Allergy status to sulfonamides; Z79.891 Long term (current) use of opiate analgesic; Z83.6 Family history of other diseases of the respiratory system; Z68.24 Body mass index [BMI] 24.0-24.9, adult; T45.1X5A Adverse effect of antineoplastic and immunosuppressive drugs, initial encounter; Y92.89 Other specified places as the place of occurrence of the external cause; B96.89 Other specified bacterial agents as the cause of diseases classified elsewhere

== ENCOUNTER 2018-12-31 20:15 | Inpatient (IN) | payer MEDICARE, OTHER ==
[~2018-12-31] VITALS: Ht 157.5 cm; Wt 64.9 kg
[2018-12-31 20:42] VITALS: BP 130/32
[2018-12-31] MEDS ORDERED: PROBIOTIC1 EAC1 PO (20:44)
[2018-12-31 21:01] LABS: HEMATOCRIT 32.1 % (37.0-47.0); HEMOGLOBIN 10.9 gm/dL (12.0-15.0); MCH 34.9 pg (26.0-34.0); MCHC 33.8 g/dL (28.0-37.0); MCV 103.1 fL (80.0-100.0); MPV 9.8 fl. (7.2-11.1); NUCLEATED RBCS 0 /100WBC; PLATELET COUNT* 79 thou/uL (150-400); RBC 3.12 mil/uL (4.20-5.00); RDW-CV 13.7 % (10.5-14.5); WBC 9.4 thou/uL (4.0-11.0)
[2018-12-31 21:12] LABS: CALCIUM 8.6 mg/dL (8.5-10.1); CREATININE 0.8 mg/dL (0.6-1.3); POTASSIUM 4.2 mmol/L (3.5-5.1)
[2018-12-31 21:16] LABS: ALBUMIN 2.7 g/dL (3.4-5.0); TOTAL BILIRUBIN 0.9 mg/dL (<0.1-1.0); TOTAL PROTEIN 6.2 g/dL (6.4-8.2)
[2018-12-31 21:28] LABS: ABSOLUTE LYMPHOCYTES 1.3 thou/uL (0.8-5.3); ABSOLUTE MONOCYTES 0.4 thou/uL (0.0-1.2); ABSOLUTE NEUTROPHILS 7.7 thou/uL (1.6-8.1); PLATELET ESTIMATE DECREASED
[2018-12-31 21:45] LABS: INR 1.3; PROTIME 13.5 Seconds (9.20-11.50)
[2018-12-31 23:15] VITALS: BP 111/35
[2019-01-01] VITALS (15 sets, daily range): BP systolic 80–112; BP diastolic 29–46
[2019-01-01 00:31] LABS: URINE BILIRUBIN NEGATIVE (Negative); URINE BLOOD NEGATIVE (Negative); URINE CLARITY CLEAR; URINE COLOR YELLOW; URINE GLUCOSE-RANDOM NEGATIVE (Negative); URINE KETONES NEGATIVE (Negative); URINE LEUKOCYTES-REFLEX 1+ (Negative); URINE NITRITE-REFLEX NEGATIVE (Negative); URINE PROTEIN NEGATIVE (Negative); URINE SPECIFIC GRAVITY <= 1.005 (1.005-1.030); URINE UROBILINOGEN 0.2 E.U./dl (0.2-1.0)
[2019-01-01 00:58] LABS: BACTERIA-REFLEX >30 Many /HPF (None Seen); FINE GRANULAR CASTS 0-3 Few /LPF (None Seen); HYALINE CASTS 0-3 Few /LPF (None Seen); MUCUS 4-6 Moderate strn/LPF (None Seen); SQUAMOUS 0-3 Few /LPF (0-3); TRANSITIONAL EPITHEL CELL 0-3 Few /LPF (None Seen); URINE WBC-REFLEX >25 Many /HPF (0-5); WBC CLUMPS Few (None Seen)
[2019-01-01 00:59] LABS: CRYSTALS None Seen /LPF (None Seen)
--- NOTE | 2019-01-01 02:49 | NUR ---
RECIEVED PT FROM ED UPON ARRIVAL TO UNIT PT DENIES PAIN AT PRSENT TIME , PT ASSESSED AND DATA BASE COMPLETED. SON AT BEDSIDE DISCUSSED PLAN OF CARE AND AGREEABLE IV FLUIDS STARTED AAS ORDERED AND URINE SPECIMEN SENT TO LAB. WILL CONTINUE WITH CURRENT PLAN OF CARE AND WILL REPORT CHANGES AND ABNORMAL FINDINGS.
--- NOTE | 2019-01-01 12:32 | NUR ---
MET WITH PT AND DTR/GILLIAN TO DISCUSS HOME SITUATION/DC PLANNING. PT LIVES IN APT IN DTR'S HOME. SHE IS FAIRLY INDEPENDENT WITH ADLS, NEEDS SOME ASSIST WITH BATHING. DTR DOES LAUNDRY/CLEANING. PT HAS BEEN ABLE TO GO TO THE STORE SOME WITH DTR. PT USES WALKER, CANE AND HAS W/C. SHE HAS HAD HH WITH [facility] IN PAST AND IS AGREEABLE TO USE AGAIN IF NEEDED. WANTS TO SEE HOW SHE DOES. DTR IS ANGELITA. CM TO FOLLOW
--- NOTE | 2019-01-01 14:05 | EKG ---
[place] [address] ELECTROCARDIOGRAM REPORT Name: SAHILYASHIRA MATTIE Room: [address] ADM IN M.R.#: [id number] Admission: 12/31/18 Attend Phys: Dillon Thurman MD Discharge: Date of : 33 Report #: [id number] THIS REPORT FOR: //name// [facility] ED Test Date: 2018-12-31 Test Time: 21:07:46 Pat Name: YASHIRA BAXTER Department: Room: [facility] Gender: F Fine Artist: BLANCHE : 1935 Requested By: Luke Powell Order Number: [id number] MD: Chencho Corea Measurements Intervals [place] Rate: 66 P: 33 [place]: 158 QRS: -14 QRSD: 115 T: 20 QT: 454 QTc: 476 Interpretive Statements Sinus rhythm Left atrial enlargement Nonspecific intraventricular conduction delay Baseline wander in lead(s) V6 Compared to ECG 05/23/2018 22:12:31 no change Electronically Signed On 01-01-2019 14:05:18 CDT by Chencho Corea [email or web address] <ELECTRONICALLY SIGNED> By: Chencho Corea MD, FAC 01/01/19 1405 06 06 Chencho Corea MD, [facility] /EPI
[2019-01-01 15:19] LABS: ABSOLUTE LYMPHOCYTES 0.4 thou/uL (0.8-5.3); ABSOLUTE MONOCYTES 0.6 thou/uL (0.0-1.2); ABSOLUTE NEUTROPHILS 6.3 thou/uL (1.6-8.1); BASOPHILS 0.3 %; EOSINOPHILS 0.2 %; HEMATOCRIT 29.3 % (37.0-47.0); HEMOGLOBIN 9.8 gm/dL (12.0-15.0); LYMPHOCYTES 5.2 %; MCH 34.9 pg (26.0-34.0); MCHC 33.3 g/dL (28.0-37.0); MCV 104.7 fL (80.0-100.0); MPV 11.1 fl. (7.2-11.1); NUCLEATED RBCS 0 /100WBC; PLATELET COUNT* 67 thou/uL (150-400); POLYS 86.3 %; RDW-CV 14.1 % (10.5-14.5); WBC 7.4 thou/uL (4.0-11.0)
[2019-01-01 15:28] LABS: CALCIUM 8.1 mg/dL (8.5-10.1); CREATININE 1.1 mg/dL (0.6-1.3); POTASSIUM 4.3 mmol/L (3.5-5.1)
[2019-01-01 15:38] LABS: ALBUMIN 2.4 g/dL (3.4-5.0); MAGNESIUM 1.5 mg/dL (1.8-2.4); PHOSPHORUS* 4.2 mg/dL (2.5-4.9); TOTAL PROTEIN 5.9 g/dL (6.4-8.2)
[2019-01-01 15:58] LABS: APTT 37.5 Seconds (25.0-31.3); INR 1.5; PROTIME 15.2 Seconds (9.20-11.50)
[2019-01-02] VITALS (40 sets, daily range): BP systolic 90–132; BP diastolic 32–62
[2019-01-02 04:30] LABS: HEMOGLOBIN 8.8 gm/dL (12.0-15.0); MCHC 33.9 g/dL (28.0-37.0); MCV 103.5 fL (80.0-100.0); MPV 9.9 fl. (7.2-11.1); RBC 2.51 mil/uL (4.20-5.00); RDW-CV 13.9 % (10.5-14.5); WBC 8.2 thou/uL (4.0-11.0)
[2019-01-02 04:39] LABS: ALBUMIN 1.9 g/dL (3.4-5.0); CALCIUM 7.9 mg/dL (8.5-10.1); CREATININE 1.1 mg/dL (0.6-1.3); POTASSIUM 4.5 mmol/L (3.5-5.1); TOTAL BILIRUBIN 0.8 mg/dL (<0.1-1.0); TOTAL PROTEIN 5.1 g/dL (6.4-8.2)
--- NOTE | 2019-01-02 07:23 | NUR ---
Pt's BP upper 90s to low 100s/30s-40s; asymptomatic. C/O pain to lower back near R kidney. Taking Tylenol about every 6 hours per pt request, reporting some relief. On 1-2 L O2 overnight for sats upper 80s on RA. Pt c/o generalized weakness. Up to BSC to void with minimal assist. Will continue to monitor.
[2019-01-02 15:00] LABS: HEMATOCRIT 26.2 % (37.0-47.0); HEMOGLOBIN 8.7 gm/dL (12.0-15.0); MCH 34.5 pg (26.0-34.0); MCHC 33.1 g/dL (28.0-37.0); MCV 104.3 fL (80.0-100.0); MPV 10.1 fl. (7.2-11.1); NUCLEATED RBCS 0 /100WBC; PLATELET COUNT* 100 thou/uL (150-400); RBC 2.51 mil/uL (4.20-5.00); RDW-CV 13.8 % (10.5-14.5); WBC 10.3 thou/uL (4.0-11.0)
--- NOTE | 2019-01-02 15:00 | NUR ---
PT IS ALERT AND ORIENTED x4. VSS. DIASTOLIC BP IN 40s. MAP HAS BEEN >60 SINCE THIS MORNING, ASYMPTOMATIC. NS AT 70 MLS/HR. O2 SATS >95% IN RA. PT SAT IN CHAIR FOR AN HOUR, VOIDING PER BSC. HAD A BM ONCE, DARK COLORED, SOFT. TOLERATED BOTH HER MEALS. TYELENOL GIVEN ONCE THIS SHIFT FOR BACK PAIN. REPORT GIVEN TO ILAN AGUERO IN TELE.
--- NOTE | 2019-01-02 15:15 | NUR ---
TRANSFER NOTE - PT TRANSFERRED FROM ICU TO TELE. FAMILY AT BEDSIDE. PT ABLE TO TRANSFER FROM WC TO BED WITH MINIMAL ASSIST. ORIENTED TO CALL LIGHT AND SURROUNDINGS. AGREE WITH PREVIOUS DOCUMENTATION. WILL CONTINUE TO MONITOR.
[2019-01-02 15:26] LABS: ABSOLUTE EOSINOPHILS 0.1 thou/uL (0.0-0.7); ABSOLUTE LYMPHOCYTES 1.3 thou/uL (0.8-5.3); ABSOLUTE MONOCYTES 0.8 thou/uL (0.0-1.2); ABSOLUTE NEUTROPHILS 8.1 thou/uL (1.6-8.1); BASOPHILS 0.3 %; EOSINOPHILS 0.5 %; LYMPHOCYTES 12.5 %; MONOCYTES 8.1 %; POLYS 78.6 %
[2019-01-03 00:07] VITALS: BP 132/52
[2019-01-03 04:18] VITALS: BP 134/55
[2019-01-03 04:25] LABS: ABSOLUTE EOSINOPHILS 0.2 thou/uL (0.0-0.7); ABSOLUTE LYMPHOCYTES 1.5 thou/uL (0.8-5.3); ABSOLUTE MONOCYTES 0.8 thou/uL (0.0-1.2); ABSOLUTE NEUTROPHILS 9.1 thou/uL (1.6-8.1); BASOPHILS 0.3 %; EOSINOPHILS 1.4 %; HEMATOCRIT 25.1 % (37.0-47.0); HEMOGLOBIN 8.6 gm/dL (12.0-15.0); LYMPHOCYTES 13.2 %; MCH 34.9 pg (26.0-34.0); MCHC 34.3 g/dL (28.0-37.0); MCV 101.8 fL (80.0-100.0); MONOCYTES 7.3 %; MPV 9.2 fl. (7.2-11.1); NUCLEATED RBCS 0 /100WBC; PLATELET COUNT* 114 thou/uL (150-400); POLYS 77.8 %; RBC 2.46 mil/uL (4.20-5.00); RDW-CV 13.9 % (10.5-14.5); WBC 11.7 thou/uL (4.0-11.0)
[2019-01-03 04:49] LABS: ALBUMIN 1.9 g/dL (3.4-5.0); CALCIUM 7.9 mg/dL (8.5-10.1); CREATININE 0.9 mg/dL (0.6-1.3); POTASSIUM 4.7 mmol/L (3.5-5.1); TOTAL BILIRUBIN 0.9 mg/dL (<0.1-1.0); TOTAL PROTEIN 5.1 g/dL (6.4-8.2)
--- NOTE | 2019-01-03 07:33 | NUR ---
ASSUMED PT CARE AT 1930. ASSESSMENT COMPLETED CHARTED. ABLE TO MAKE NEEDS KNOWN. NO C/O PAIN OR DISCOMFORT. PT RESTING IN BED MOST OF THE NIGHT. IV FLUIDS INFUSING PER P.O. NO SIGNIFICANT CHANGES THIS SHIFT. WILL CONTINUE TO MONITOR.
[2019-01-03 07:51] VITALS: BP 127/52
[2019-01-03 12:00] VITALS: BP 116/42
[2019-01-03 13:15] LABS: HEMATOCRIT 26.3 % (37.0-47.0)
[2019-01-03 16:00] VITALS: BP 106/47
[2019-01-03 20:00] VITALS: BP 131/47
[2019-01-04] VITALS (7 sets, daily range): BP systolic 111–165; BP diastolic 45–73
[2019-01-04 05:07] LABS: HEMATOCRIT 25.5 % (37.0-47.0); HEMOGLOBIN 8.7 gm/dL (12.0-15.0); MCH 34.6 pg (26.0-34.0); MCHC 34.2 g/dL (28.0-37.0); MCV 101.1 fL (80.0-100.0); MPV 8.9 fl. (7.2-11.1); RBC 2.52 mil/uL (4.20-5.00); WBC 9.8 thou/uL (4.0-11.0)
[2019-01-04 05:22] LABS: ALBUMIN 2.1 g/dL (3.4-5.0); CALCIUM 8.1 mg/dL (8.5-10.1); CREATININE 0.8 mg/dL (0.6-1.3); MAGNESIUM 1.6 mg/dL (1.8-2.4); POTASSIUM 4.1 mmol/L (3.5-5.1); TOTAL BILIRUBIN 0.9 mg/dL (<0.1-1.0); TOTAL PROTEIN 5.3 g/dL (6.4-8.2)
--- NOTE | 2019-01-04 07:56 | CON ---
[address] [address] CONSULTATION Name: SAHILYASHIRA MATTIE Room: [address] IN M.R.#: [id number] Admission: 12/31/18 Attend Phys: Dillon Thurman MD Discharge: Date of : 33 Report #: [id number] THIS REPORT FOR: //name// CC: Dillon Bhattia Ernst DATE OF SERVICE: 01/01/2019 INFECTIOUS DISEASE CONSULTATION ATTENDING PHYSICIAN: Axel Preston MD REASON FOR EVALUATION: Gram-positive septicemia in a setting of probable pyelonephritis. HISTORY OF PRESENT ILLNESS: Chart reviewed, patient examined. This is an 83-year-old woman with history of aortic valve replacement, it is apparently the bioprosthesis who was admitted to the Emergency Room on the with complaints of weakness, fever, did note left-sided flank pain as well and when evaluation, imaging was otherwise unremarkable. Urinalysis showed marked pyuria. Blood cultures collected at the time of admission now 1 out of 2 with growth of gram-positive cocci. She is moderately uncomfortable at this point, she is not encephalopathic. There is a concern about early sepsis. She is borderline hypotensive at this point, started empirically on levofloxacin and based on the blood cultures, vancomycin has been added as well. She has a fair appetite. Denies any significant gastrointestinal-related complaints. She has not been having difficulty breathing, although she is on supplemental oxygen 2 liters. ALLERGIES: Listed as SULFA. CURRENT MEDICATIONS: Include enoxaparin, Levaquin, acetaminophen, ipratropium and dosed with vancomycin. PAST MEDICAL HISTORY: Includes: Aortic valve replacement, previous history of colon cancer with partial colectomy, previous hysterectomy, appendectomy, cholecystectomy, left total knee arthroplasty. SOCIAL HISTORY: Nonsmoker, no ethanol. FAMILY HISTORY: Noncontributory. REVIEW OF SYSTEMS: Otherwise, unremarkable. A 10-point review of systems with exception of the above in the history of present illness. PHYSICAL EXAMINATION: GENERAL: She is pleasant, alert, cooperative. [place] [address] CONSULTATION Name: YASHIRA BAXTER Room: [address] IN [facility]#: [id number] Admission: 12/31/18 Attend Phys: Dillon Thurman MD Discharge: Date of : 33 Report #: [id number] ill-appearing, mildly undernourished. VITAL SIGNS: Temperature 98, pulse 70, respirations 16 and blood pressure 98/45. SKIN: Warm, dry, no rashes. HEENT: Normocephalic. Extraocular muscles intact. NECK: Supple. LUNGS: Generally clear to auscultation. HEART: Regular, has a soft systolic murmur. ABDOMEN: Soft. There is some tenderness on the left side. There are no overt peritoneal signs. EXTREMITIES: Lower extremities, unremarkable. GENITOURINARY: Deferred. RECTAL: Deferred. LABORATORY DATA: As described above. Blood culture 1 out of 2 collected on the late in the evening with Gram-positive cocci. Prealbumin of 8.2. Urinalysis, marked pyuria with greater than 25 white cells, greater than [address] abdomen and pelvis, there is question of cirrhosis, mild ascites. No evidence of urolithiasis or hydronephrosis. Chest x-ray: Mild left basilar infiltrate. CBC: White count of 9.4, H and H 10.9 and 32.1 and platelets of 79. Lactic acid 1.9. Electrolytes: Sodium 137, potassium 4.2, chloride 103, bicarbonate is 26, anion gap of 8, BUN and creatinine 25 and 0.8. AST of 69 and ALT of 34. Albumin of 2.7, total protein 6.2. ASSESSMENT AND PLAN: Gram-positive cocci septicemia. Agree with vancomycin, we will continue that pending the results of the culture, although it does not necessarily fit at this point ____ grow gram negative associated with pyelonephritis, which I believe she has as well and estimated GFR of 68. We will dose with gentamicin x1 pending results of the urine culture. I discussed with the patient who says she does clinically have an incentive spirometer. <ELECTRONICALLY SIGNED> By: John Prabhakar MD 01/04/19 0756 1221 [id number] Prabhakar MD /nt
[2019-01-04 12:22] LABS: HEMATOCRIT 26.3 % (37.0-47.0); HEMOGLOBIN 8.9 gm/dL (12.0-15.0)
--- NOTE | 2019-01-04 16:14 | NUR ---
ASSUMED PT CARE AT 0800. 02 SAT 90'S RA. AOX4, UP WITH ASSIST, PT INCONTINENT OF URINE, PT HAS COMMODE. IV CAME OUT, PUT NEW IV ON R FOREARM. PT RECEIVING ANTIBIOTICS. PT ON CLEAR LIQUIDS DIET PT FOR EGD/COLONOSCOPY TOMORROW. ON BOWEL PREP. NPO MIDNIGHT. VSS, AM ASSESSMENT CHARTED. MEDS GIVEN PER MAR. WILL CONTINUE TO MONITOR.
--- NOTE | 2019-01-04 17:12 | 2DMMODE ---
[place] [address] 2 D/M-MODE ECHOCARDIOGRAM Name: SAHILYASHIRA MATTIE Room: [facility] ADM IN [facility]#: [id number] Admission: 12/31/18 Attend Phys: Dillon Thurman, Discharge: Date of : 33 Date of Service: 01/04/19 1413 Report #: [id number] THIS REPORT FOR: //name// APPROVED REPORT Study performed: 01/04/2019 10:00:38 EXAM: Comprehensive 2D, Doppler, and color-flow Echocardiogram Patient Location: In-Patient Room #: [facility] Status: routine BSA: 1.66 HR: 82 bpm BP: 125/58 mmHg Rhythm: NSR Other Information Study Quality: Good Indications rule out valvular vegetation 2D Dimensions IVSd: 12.56 (7-11mm) LVOT Diam: 18.28 (18-24mm) LVDd: 38.85 mm PWd: 11.89 (7-11mm) Ascending Ao: 31.83 (22-36mm) LVDs: 22.87 (25-40mm) Aortic Root: 29.63 mm Volumes Left Atrial Volume (Systole) LA ESV Index: 62.30 mL/m2 Aortic Valve AoV Peak Dilan.: 2.35 m/s AO Peak Gr.: 22.03 mmHg LVOT Max P.04 mmHg AO Mean Gr.: 11.90 mmHg LVOT Mean P.50 mmHg LVOT Max V: 1.50 m/s AO V2 VTI: 46.53 cm LVOT Mean V: 0.97 m/s VIKAS (VTI): 1.93 cm2 LVOT V1 VTI: 34.17 cm Mitral Valve MV Mean Gr.: 8.26 mmHg E/A Ratio: 1.06 MV Decel. Time: 315.20 ms MV E Max Dilan.: 1.97 m/[place] [address] 2 D/M-MODE ECHOCARDIOGRAM Name: DWIGHT BAXTERA MATTIE Room: [address] IN .R.#: [id number] Admission: 12/31/18 Attend Phys: Dillon Thurman, Discharge: Date of : 31 Date of Service: 01/04/19 1413 Report #: [id number] MV PHT: 91.41 ms MVA (PHT): 2.41 cm2 TDI E/Lateral E': 21.89 Lateral E' Dilan.: 0.09 m/s Pulmonary Valve PV Peak Dilan.: 1.12 m/s PV Peak Gr.: 5.03 mmHg Tricuspid Valve RAP Estimate: 5.00 mmHg TR Peak Gr.: 31.70 mmHg RVSP: 36.00 mmHg PA Pressure: 36.00 mmHg Left Ventricle The left ventricle is normal size. There is normal LV segmental wall motion. Mild concentric left ventricular hypertrophy. Left ventricular systolic function is normal. The left ventricular ejection fraction is within the normal range. LVEF is 60-65%. The left ventricular diastolic function is normal. Right Ventricle The right ventricle is normal size. The right ventricular systolic function is normal. Atria Left atrium is moderately dilated. The right atrium size is normal. Aortic Valve Moderate aortic valve sclerosis. Bioprosthetic aortic valve is present. Trace aortic regurgitation. Mild aortic stenosis. Mitral Valve Severe mitral annular calcification. Mild to moderate mitral regurgitation. No significant mitral valve stenosis. Tricuspid Valve The tricuspid valve is normal in structure. Trace tricuspid regurgitation. Mild tricuspid regurgitation. Pulmonic Valve The pulmonary valve is normal in structure. Mild [place] [address] 2 D/M-MODE ECHOCARDIOGRAM Name: YASHIRA BAXTER Room: [address] IN [facility]#: [id number] Admission: 12/31/18 Attend Phys: Dillon Thurman, Discharge: Date of : 31 Date of Service: 01/04/19 1413 Report #: [id number] Great Vessels The aortic root is normal in size. IVC is normal in size and collapses >50% with inspiration. Pericardium There is no pericardial effusion. <Conclusion> The left ventricle is normal size. Mild concentric left ventricular hypertrophy. Left ventricular systolic function is normal. The left ventricular ejection fraction is within the normal range. LVEF is 60-65%. The left ventricular diastolic function is normal. The right ventricle is normal size. Left atrium is moderately dilated. Moderate aortic valve sclerosis. Trace aortic regurgitation. Mild aortic stenosis. Severe mitral annular calcification. Mild to moderate mitral regurgitation. No significant mitral valve stenosis. The tricuspid valve is normal in structure. Trace tricuspid regurgitation. Mild tricuspid regurgitation. IVC is normal in size and collapses >50% with inspiration. There is no pericardial effusion. There is normal LV segmental wall motion. Bioprosthetic aortic valve is present. <ELECTRONICALLY SIGNED> By: Jamison Spears MD, FACC 01/04/19 1413 1413 1413 Jamison Spears MD, FACC /INF
--- NOTE | 2019-01-04 18:23 | NUR ---
PT ON BOWEL PREP. DARK STOOL NOTED. PT USES COMMODE, HAVE BM 3X. CONSENT SIGNED FOR EGD/COLONOSCOPY TOMORROW. NPO MIDNIGHT. FOR SOAP SUDS ENEMA TOMORROW. VSS, ALL NEEDS MET AT THIS TIME. WILL CONTINUE TO MONITOR.
--- NOTE | 2019-01-05 01:27 | NUR ---
PT ALERT ORIENTED. UP TO BSC WITH MINIMAL ASSIST OF ONE. USING CALL LIGHT APPROPRIATELY. BOWEL PREP COMPLETE PT HAVING STRAW COLORED STOOLS. TELEMETRY SHOWS SR. NPO AT MN.
[2019-01-05 04:00] VITALS: BP 139/61
[2019-01-05 04:36] LABS: HEMATOCRIT 25.9 % (37.0-47.0); HEMOGLOBIN 8.7 gm/dL (12.0-15.0); MCH 34.1 pg (26.0-34.0); MCHC 33.6 g/dL (28.0-37.0); MCV 101.7 fL (80.0-100.0); MPV 8.9 fl. (7.2-11.1); RBC 2.55 mil/uL (4.20-5.00); RDW-CV 14.3 % (10.5-14.5); WBC 10.5 thou/uL (4.0-11.0)
[2019-01-05 04:44] LABS: INR 1.3
[2019-01-05 05:06] LABS: ALBUMIN 2.1 g/dL (3.4-5.0); CALCIUM 8.1 mg/dL (8.5-10.1); CREATININE 0.7 mg/dL (0.6-1.3); MAGNESIUM 1.8 mg/dL (1.8-2.4); POTASSIUM 4.1 mmol/L (3.5-5.1); TOTAL BILIRUBIN 0.9 mg/dL (<0.1-1.0); TOTAL PROTEIN 5.4 g/dL (6.4-8.2)
[2019-01-05 08:00] VITALS: BP 123/48
[2019-01-05 08:55] VITALS: BP 123/48
--- NOTE | 2019-01-05 10:37 | NUR ---
ASSUMED PT CARE AT 0800. AOX4, SBA, USES COMMODE. PT FOR EGD/COLONOSCOPY. NPO MIDNIGHT. PRE OP CHECKLIST DONE. CONSENT SIGNED. STOP TELE, M/S STATUS. AM ASSESSMENT CHARTED. HOURLY ROUNDING. CALL LIGHT WITHIN REACH. WILL CONTINUE TO MONITOR.
[2019-01-05 11:58] LABS: HEMATOCRIT 26.1 % (37.0-47.0); HEMOGLOBIN 8.7 gm/dL (12.0-15.0)
[2019-01-05 16:00] VITALS: BP 125/50
--- NOTE | 2019-01-05 18:13 | NUR ---
AOX4, SBA, O2 SAT 90'S RA. VSS, PT HAD EGD/COLONOSCOPY. PT COMPLAINS OF FLANK PAIN, MEDS GIVEN. HOURLY ROUNDING OBSERVED. CALL LIGHT WITHIN REACH. WILL CONTINUE TO MONITOR.
[2019-01-05 20:00] VITALS: BP 125/47
[2019-01-06] VITALS: BP 136/56
--- NOTE | 2019-01-06 04:34 | NUR ---
PT ALERT ORIENTED. IS UP TO 750. PT NEEDS MUCH ENCOURAGEMENT FOR IS. UP TO BSC WITH STD BY ASSIST. ON RA. MED SURG STATUS.
[2019-01-06 05:14] LABS: ABSOLUTE EOSINOPHILS 0.3 thou/uL (0.0-0.7); ABSOLUTE LYMPHOCYTES 2.5 thou/uL (0.8-5.3); ABSOLUTE MONOCYTES 0.8 thou/uL (0.0-1.2); ABSOLUTE NEUTROPHILS 8.5 thou/uL (1.6-8.1); BASOPHILS 0.3 %; EOSINOPHILS 2.4 %; HEMATOCRIT 25.3 % (37.0-47.0); HEMOGLOBIN 8.4 gm/dL (12.0-15.0); LYMPHOCYTES 20.9 %; MCH 34.1 pg (26.0-34.0); MCHC 33.2 g/dL (28.0-37.0); MCV 102.5 fL (80.0-100.0); MONOCYTES 6.2 %; MPV 8.9 fl. (7.2-11.1); NUCLEATED RBCS 0 /100WBC; PLATELET COUNT* 136 thou/uL (150-400); POLYS 70.2 %; RBC 2.47 mil/uL (4.20-5.00); RDW-CV 14.3 % (10.5-14.5); WBC 12.1 thou/uL (4.0-11.0)
[2019-01-06 05:26] LABS: CALCIUM 7.8 mg/dL (8.5-10.1); CREATININE 0.7 mg/dL (0.6-1.3)
[2019-01-06 05:51] LABS: PREALBUMIN 7.9 mg/dL (18.0-35.7)
[2019-01-06 06:32] LABS: ESR (SEDRATE) 14 mm/hr (0-30)
[2019-01-06 08:00] VITALS: BP 131/87
[2019-01-06 16:17] VITALS: BP 129/52
--- NOTE | 2019-01-06 17:03 | NUR ---
PATIENT SITTING UP IN CHAIR SINCE AFTERNOON. PATIENT INCONTINENT AT TIMES AND CALLING OUT FOR BSC. UP WITH SBA, WALKER. IV ABX INFUSED ORDERED. NO COMPLAINTS OF PAIN.
[2019-01-06 20:00] VITALS: BP 125/52
[2019-01-07] VITALS: BP 117/48
[2019-01-07 05:44] LABS: HEMATOCRIT 24.2 % (37.0-47.0); HEMOGLOBIN 8.1 gm/dL (12.0-15.0)
--- NOTE | 2019-01-07 06:54 | NUR ---
PT SLEPT MOST OF SHIFT. ASSESSMENT DOCUMENTED. MEDS GIVEN PER E-MAR. IV PATENT. NO REPORTS OF PAIN OR NAUSEA THIS SHIFT. PT NOT VOIDED, BLADDER SCANNED PATIENT, PT VOIDED AND RE- SCANNED. BLADDER SCANNER READING 470 POST VOID. WILL CONTINUE WITH PLAN OF CARE.
--- NOTE | 2019-01-07 13:07 | PATH ---
[address] [address] PATHOLOGY RPT PROCEDURE Name: ELISABET BAXTER Room: [address] IN M.R.#: [id number] Admission: 12/31/18 Date of : 31 Discharge: Report #: [id number] Path Case #: [id number] [facility] Accession Number: [id number] . 01 Material submitted: . PART A: stomach - ANTRAL BIOPSIES FOR H. PYLORI FOR GASTRIC ULCERS PART B: colon - DISTAL SIGMOID ANASTOMOSIS POLYP. Modifiers: distal, sigmoid . 01 Clinical history: . None provided . 02 Diagnosis: A. Stomach, antrum, biopsy: - Chronic superficial gastritis, mild, with focal intestinal metaplasia and possible focal superficial erosion. - No evidence of Helicobacter pylori on immunoperoxidase stain. . B. Colon, distal sigmoid, biopsy: - Colonic mucosa with ulceration, moderate acute and chronic inflammation, and mild hyperplastic changes. . (TARA:dell; 01/07/2019) QLM/01/07/2019 . 02 Electronically signed: . Evan Wilkes MD, Pathologist NPI- [id number] . 01 Gross description: . A. The specimen is received in formalin, labeled "Elisabet Baxter, antral biopsies for H. pylori, for gastric ulcers". Received are two segments of pale harris soft tissue ranging in size from 0.4 to 0.5 cm in maximum dimensions. The specimen is submitted entirely in cassette A1. . B. The specimen is received in formalin, labeled "Elisabet Baxter, distal sigmoid anastomosis polyp". Received is a segment of pale harris soft tissue measuring 0.3 cm in maximum dimensions. The specimen is submitted entirely in cassette B1. (CAA; 01/06/2019) QAC/QAC . 02 Pathologist provided ICD-10: K29.30, K52.9, K63.3 . 02 CPT . 607771, 475814, C38735 Specimen Comment: A courtesy [place] of [place] [address] PATHOLOGY RPT PROCEDURE Name: ELISABET BAXTER Room: [address] IN M.R.#: [id number] Admission: 12/31/18 Date of : 31 Discharge: Report #: [id number] Path Case #: [id number] Specimen Comment: [phone], , . Specimen Comment: Report sent to ,DR STREET / DR MARQUEZ Performed at: [address], [place], [place] [address] MD Richi Akhtar MD Phone: [phone] Performed at: [address] [address] [address], [place], [place] [id number] MD Bin Lincoln MD Phone: [phone]
[2019-01-07 14:29] VITALS: BP 126/76
[2019-01-07 16:00] VITALS: BP 135/57
--- NOTE | 2019-01-07 16:36 | NUR ---
PT UP IN CHAIR MOST OF DAY AND REVIEVED BATH BY NURSES AIDS. WILL CONTINUE TO ASSESS.
[2019-01-07 20:30] VITALS: BP 165/70
[2019-01-08 04:31] VITALS: BP 154/61
--- NOTE | 2019-01-08 05:25 | NUR ---
PT CARE ASSUMED AT 1930. SAT MAINTAINED IN RA. ALERT AND ORIENTED X4. CALL LIGHT WITHIN REACH AND BED IN LOW POSITION. DENIES PAIN AND SOB. HOURLY ROUNDING DONE FOR PT SAFETY.
[2019-01-08 07:40] VITALS: BP 128/56
[2019-01-08] MEDS ORDERED: PROBIOTIC1 EAC1 PO (09:56)
[2019-01-08] MEDS ORDERED: CLEOCIN HCL150 MG PO (09:56)
[2019-01-08] MEDS ORDERED: OMEPRAZOLE40 MG PO (09:56)
[2019-01-08 12:10] VITALS: BP 154/61
--- NOTE | 2019-01-08 13:37 | NUR ---
ASSESSMENT DOCUMENTED. MEDS GIVEN PER E-MAR. IV PATENT, ABX INFUSED. DISCHARGE ORDERS RECIEVED. IV REMOVED. PT DISCHARGED WITH SON.
== END 2019-01-08 13:15 | disposition home or self-care (01) | DRG 871 ==
LOC: M.ERS 20:15 → M.TBA-ER 22:22 → M.ORTHSURG 22:22 → M.2W 01-01 14:45 → M.TBA-ER 01-01 15:10 → M.2W 01-01 15:15 → M.ICU 01-01 18:05 → M.2W 01-02 15:15
PROVIDERS: Family Medicine; Internal Medicine; Internal Medicine Gastroenterology; Internal Medicine Infectious Disease; ADMIT Internal Medicine
DX: A40.9 Streptococcal sepsis, unspecified (principal); G93.41 Metabolic encephalopathy; E43 Unspecified severe protein-calorie malnutrition; N17.0 Acute kidney failure with tubular necrosis; J15.4 Pneumonia due to other streptococci; K27.4 Chronic or unspecified peptic ulcer, site unspecified, with hemorrhage; I85.01 Esophageal varices with bleeding; N39.0 Urinary tract infection, site not specified; R18.8 Other ascites; D62 Acute posthemorrhagic anemia; R65.20 Severe sepsis without septic shock; Z96.652 Presence of left artificial knee joint; E86.0 Dehydration; K74.60 Unspecified cirrhosis of liver; E53.8 Deficiency of other specified B group vitamins; I71.4 Abdominal aortic aneurysm, without rupture; D53.9 Nutritional anemia, unspecified; K44.9 Diaphragmatic hernia without obstruction or gangrene; K64.4 Residual hemorrhoidal skin tags; K63.5 Polyp of colon; Z90.49 Acquired absence of other specified parts of digestive tract; Z95.2 Presence of prosthetic heart valve; Z90.710 Acquired absence of both cervix and uterus; Z85.038 Personal history of other malignant neoplasm of large intestine; Z88.2 Allergy status to sulfonamides; Z87.891 Personal history of nicotine dependence; Z68.26 Body mass index [BMI] 26.0-26.9, adult; Z79.899 Other long term (current) drug therapy

== ENCOUNTER → 2019-01-20 | Outpatient (CLI) | payer MEDICARE, OTHER ==
[~2019-01-20] MED LIST changes: +CLEOCIN HCL150 MG PO; +IRON325 PO; +OMEPRAZOLE40 MG PO; +PROBIOTIC1 EAC1 PO
== END ==
LOC: M.RAD 11:56
DX: J81.1 Chronic pulmonary edema (principal); J18.9 Pneumonia, unspecified organism; I51.7 Cardiomegaly

== ENCOUNTER 2019-01-25 18:27 | Inpatient (IN) | payer MEDICARE, OTHER ==
[~2019-01-25] VITALS: Ht 157.5 cm; Wt 56.2 kg
[~2019-01-25 18:27] MED LIST changes: -IRON325 PO
[2019-01-25 18:29] VITALS: BP 120/31; BP 120/59
[2019-01-25 18:50] LABS: URINE BILIRUBIN NEGATIVE (Negative); URINE BLOOD NEGATIVE (Negative); URINE CLARITY CLEAR; URINE COLOR YELLOW; URINE GLUCOSE-RANDOM NEGATIVE (Negative); URINE KETONES NEGATIVE (Negative); URINE LEUKOCYTES-REFLEX NEGATIVE (Negative); URINE NITRITE-REFLEX NEGATIVE (Negative); URINE PROTEIN NEGATIVE (Negative); URINE SPECIFIC GRAVITY <= 1.005 (1.005-1.030); URINE UROBILINOGEN 0.2 E.U./dl (0.2-1.0)
[2019-01-25] MEDS ORDERED: CLEOCIN HCL150 MG PO (19:10)
[2019-01-25] MEDS ORDERED: LOMOTIL TABLET1 EACH PO (19:11)
[2019-01-25 19:23] LABS: ABSOLUTE BASOPHILS 0.1 thou/uL (0.0-0.2); ABSOLUTE EOSINOPHILS 0.1 thou/uL (0.0-0.7); ABSOLUTE LYMPHOCYTES 1.4 thou/uL (0.8-5.3); ABSOLUTE MONOCYTES 0.5 thou/uL (0.0-1.2); ABSOLUTE NEUTROPHILS 6.6 thou/uL (1.6-8.1); BASOPHILS 0.6 %; EOSINOPHILS 0.7 %; HEMATOCRIT 27.6 % (37.0-47.0); HEMOGLOBIN 9.3 gm/dL (12.0-15.0); LYMPHOCYTES 16.5 %; MCH 33.9 pg (26.0-34.0); MCHC 33.7 g/dL (28.0-37.0); MCV 100.6 fL (80.0-100.0); MONOCYTES 5.6 %; MPV 8.8 fl. (7.2-11.1); NUCLEATED RBCS 0 /100WBC; PLATELET COUNT* 214 thou/uL (150-400); POLYS 76.6 %; RBC 2.74 mil/uL (4.20-5.00); RDW-CV 14.6 % (10.5-14.5); WBC 8.7 thou/uL (4.0-11.0)
[2019-01-25 19:33] LABS: ANION GAP 8 mmol/L (7-16); BUN 11 mg/dL (7-18); CALCIUM 8.2 mg/dL (8.5-10.1); CHLORIDE 103 mmol/L (98-107); CO2 27 mmol/L (21-32); CREATININE 0.8 mg/dL (0.6-1.3); GLUCOSE 96 mg/dL (70-99); POTASSIUM 4.1 mmol/L (3.5-5.1); SODIUM 138 mmol/L (136-145)
[2019-01-25 19:35] LABS: APTT 33.9 Seconds (25.0-31.3); INR 1.4; PROTIME 14.3 Seconds (9.20-11.50)
[2019-01-25] MEDS ORDERED: IRON325 PO (19:38)
[2019-01-25 19:47] LABS: ALBUMIN 2.4 g/dL (3.4-5.0); ALKALINE PHOSPHATASE 129 U/L (46-116); CK-MB MASS < 0.5 ng/mL (<0.5-3.6); NT-PRO BRAIN NAT PEPTIDE 4214 pg/mL (<300); SGOT 50 U/L (15-37); SGPT 18 U/L (30-65); TOTAL BILIRUBIN 0.8 mg/dL (<0.1-1.0); TOTAL PROTEIN 6.8 g/dL (6.4-8.2); TROPONIN-I LEVEL 0.09 ng/mL (<0.06)
[2019-01-25 20:24] VITALS: BP 119/48
[2019-01-25 20:30] VITALS: BP 138/52
--- NOTE | 2019-01-25 20:30 | NUR ---
RECEIVED REPORT FROM ER, ADMITTED TO ROOM. FAMILY AT BEDSIDE. PT PLEASANT AND COOPERATIVE. NIH WITH SCORE OF 4 DUE TO LT FACIAL DROOP, DRIFTING OF LT ARM AND LEG, AND POOR LT MOVING HEEL UP AND DOWN LEG. TELEMETRY ON SHOWING A-FIB. SEE ADMISSION ASSESSMENT AND HX. WILL CONT TO MONITOR AND ASSIST NEEDED. SON STAYING AT BEDSIDE
--- NOTE | 2019-01-25 22:00 | NUR ---
ASSISTED TO BSC WITH MOD ASSIST OF 1 PERSON. VOIDING WELL.
[2019-01-26] VITALS (13 sets, daily range): BP systolic 119–155; BP diastolic 45–64
[2019-01-26 00:56] LABS: ABSOLUTE LYMPHOCYTES 1.5 thou/uL (0.8-5.3); ABSOLUTE MONOCYTES 0.5 thou/uL (0.0-1.2); ABSOLUTE NEUTROPHILS 5.1 thou/uL (1.6-8.1); BASOPHILS 0.4 %; EOSINOPHILS 0.6 %; HEMATOCRIT 23.6 % (37.0-47.0); HEMOGLOBIN 7.9 gm/dL (12.0-15.0); LYMPHOCYTES 21.3 %; MCH 33.6 pg (26.0-34.0); MCHC 33.6 g/dL (28.0-37.0); MCV 100.2 fL (80.0-100.0); MPV 8.2 fl. (7.2-11.1); NUCLEATED RBCS 0 /100WBC; PLATELET COUNT* 173 thou/uL (150-400); POLYS 70.7 %; RBC 2.36 mil/uL (4.20-5.00); RDW-CV 14.6 % (10.5-14.5); WBC 7.1 thou/uL (4.0-11.0)
[2019-01-26 01:09] LABS: AMMONIA 25 umol/L (11-32); ANION GAP 6 mmol/L (7-16); BUN 11 mg/dL (7-18); CHLORIDE 106 mmol/L (98-107); CHOLESTEROL 150 mg/dL (<200); CO2 27 mmol/L (21-32); CREATININE 0.7 mg/dL (0.6-1.3); GLUCOSE 95 mg/dL (70-99); HDL CHOLESTEROL 25 mg/dL (>40); LDL CHOLESTEROL 112 mg/dL (<100); MAGNESIUM 1.7 mg/dL (1.8-2.4); POTASSIUM 3.9 mmol/L (3.5-5.1); SODIUM 139 mmol/L (136-145); TRIGLYCERIDE 69 mg/dL (<150); VLDL 14 mg/dL (<40)
[2019-01-26 01:11] LABS: SERUM ASSESSMENT Clear
--- NOTE | 2019-01-26 06:23 | NUR ---
SLEPT WELL. ASSISTED TO BSC WITH MOD ASSIST OF 1 PERSON. TELEMETRY CONT TO SHOW SR. NO CHANGE IN ASSESSMENT. HS GOALS OF REST AND SAFETY ACHIEVED. HOURLY ROUNDING OBSERVED.
--- NOTE | 2019-01-26 08:30 | NUR ---
ASSUMED CARE OF PT AT 0730. PT RESTING IN BED. SON AT BEDSIDE. PT A&0X4, DENIES ANY PAIN OR SHORTNESS OF BREATH AT THIS TIME. PT TRACING SR ON THE MANUFACTURER'S REPRESENTATIVE. ON RA SAT UPPER 90'S. NIH COMPLETED. REFER TO CHARTING. IVF. PT UP WITH 1 ASSIST. PT NPO AT THIS TIME. AWAITING SPEECH THERAPY EVAL. PT GOAL FOR TODAY IS MONITOR NIH, ST, PT AND OT EVAL AND TREAT, NEURO CONSULT IN PLACE, CARDIOLOGY CONSULT IN PLACE AND ADVANCE DIET TOLERATED ONCE CLEARED BY SPEECH. AM ASSESSMENT CHARTED. MEDICATIONS PER SEP. PT REPOSITIONS SELF. HOURLY ROUNDING OBSERVED. BED IN LOW POSITION. CALL LIGHT WITHIN REACH. WILL CONTINUE PLAN OF CARE.
--- NOTE | 2019-01-26 15:34 | NUR ---
Pt is A&O. Resides at dtr's home in an apartment. Known to this CM from previous hospital stays. Pt is normally independent, dtr is available to assist as needed. Dtr does majority of cooking and cleaning for Pt. Pt has a walker, cane and wc that she can use for mobility. Hx of [facility]. No hx of SNF. Goal is home at dc. Following for dc needs.
--- NOTE | 2019-01-26 15:53 | EKG ---
[place] [address] ELECTROCARDIOGRAM REPORT Name: YASHIRA BAXTER Room: [address] ADM IN M.R.#: [id number] Admission: 01/25/19 Attend Phys: Haylee Isbell MD Discharge: Date of : 31 Report #: [id number] THIS REPORT FOR: //name// [facility] ED Test Date: 2019-01-25 Test Time: 19:00:53 Pat Name: YASHIRA BAXTER Department: Room: [facility] Gender: F [employer] Manager: : 1935 Requested By: Luke Powell Order Number: [id number] MD: Mike Bueno Measurements Intervals [place] Rate: 77 P: 78 AR: 170 QRS: -14 QRSD: 123 T: 45 QT: 446 QTc: 505 Interpretive Statements Sinus rhythm Probable left atrial enlargement Left ventricular hypertrophy Prolonged QT interval Compared to ECG 12/31/2018 21:07:46 Left ventricular hypertrophy now present Prolonged QT interval now present Intraventricular conduction delay no longer present Electronically Signed On 01-26-2019 15:53:19 CDT by Mike Bueno [email or web address] <ELECTRONICALLY SIGNED> By: Mike Bueno MD, FACC 01/26/19 1553 1900 190 Mike Bueno MD, FAC /EPI
--- NOTE | 2019-01-26 16:40 | TEE ---
[place] [address] TRANSESOPHAGEAL ECHOCARDIOGRAM Name: YASHIRA BAXTER Room: [address] IN [facility]#: [id number] Admission: 01/25/19 Attend Phys: Haylee Isbell MD Discharge: Date of : 31 Date of Service: 01/26/19 [facility] Report #: [id number] THIS REPORT FOR: //name// APPROVED REPORT Study performed: 01/26/2019 15:56:09 EXAM: Transesophageal Echocardiogram Patient Location: In-Patient Room #: [facility] Status: routine BSA: 1.54 HR: 76 bpm BP: 139/54 mmHg Rhythm: NSR Other Information Study Quality: Good Indications CVA/TIA Echo Enhancing Agent Indication: Rule out Shunt Agent(s) / Amount(s) Used: Agitated Saline 10 cc Procedure After obtaining informed consent, patient underwent transesophageal echo in the [employer]. Type of Sedation : Conscious Sedation Sedation was administered by Becky Mathias RN. Sedation start time: 1600 Case end Time: 1613 Sedation was achieved intravenously with: Versed (2) Fentanyl (50) Transesophageal probe was inserted and advanced into esophagus without difficulty by Mike Bueno MD, FACC. Echo enhancement indication: R/O Septal defect. Echo enhancement agent administered: Agitated Saline The SHERI was performed without complications. Throughout the procedure, the blood pressure, pulse oximetry, cardiac rhythm, and rate were monitored. The patient tolerated the procedure without adverse effects. Recovery from conscious sedation was uneventful and [place] [address] TRANSESOPHAGEAL ECHOCARDIOGRAM Name: YASHIRA BAXTER Room: [address] IN [facility]#: [id number] Admission: 01/25/19 Attend Phys: Haylee Isbell MD Discharge: Date of : 31 Date of Service: 01/26/19 [facility] Report #: [id number] Left Ventricle The left ventricle is normal size. There is normal LV segmental wall motion. Mild concentric left ventricular hypertrophy. Left ventricular systolic function is normal. LVEF is 60-65%. Right Ventricle The right ventricle is normal size. The right ventricular systolic function is normal. Atria Left atrium is moderately dilated. No thrombus is visualized in the left atrium or appendage. Small PFO is noted. The right atrium size is normal. Aortic Valve Bioprosthetic aortic valve is present. Trace aortic regurgitation. There is no aortic valvular stenosis. Mitral Valve Moderate mitral annular calcification. Mild to moderate mitral regurgitation. No evidence of mitral valve stenosis. Tricuspid Valve The tricuspid valve is normal in structure. Trace tricuspid regurgitation. Pulmonic Valve Pulmonic valve is not well visualized. Great Vessels The aortic root is normal in size. Pericardium There is no pericardial effusion. <Conclusion> The left ventricle is normal size. Mild concentric left ventricular hypertrophy. Left ventricular systolic function is normal. LVEF is 60-65%. Left atrium is moderately dilated. No thrombus is visualized in the left atrium or appendage. Small PFO is noted. Bioprosthetic aortic valve is present. Trace aortic regurgitation. There is no [place] [address] TRANSESOPHAGEAL ECHOCARDIOGRAM Name: YASHIRA BAXTER Room: [address] IN [facility]#: [id number] Admission: 01/25/19 Attend Phys: Haylee Isbell MD Discharge: Date of : 31 Date of Service: 01/26/19 [facility] Report #: [id number] Moderate mitral annular calcification. Mild to moderate mitral regurgitation. Trace tricuspid regurgitation. No evidence of valvular vegetation. <ELECTRONICALLY SIGNED> By: Mike Bueno MD, FACC 01/26/19 1640 1640 1640 Mike Bueno MD, FACC /INF
--- NOTE | 2019-01-26 16:51 | CON ---
[address] [address] CONSULTATION Name: YASHIRA BAXTER Room: [address] IN .R.#: [id number] Admission: 01/25/19 Attend Phys: Haylee Isbell MD Discharge: Date of : 33 Report #: [id number] THIS REPORT FOR: //name// CC: Chencho Corea MD LOCATED WITHIN [facility] Delia Ernst DO Haylee Isbell INDICATION: The patient with history of bioprosthetic aortic valve placement, now admitted with symptoms of stroke. HISTORY OF PRESENT ILLNESS: The patient is a very pleasant 83-year-old white female who had her aortic valve replaced in 2013 with a bioprosthetic aortic valve for severe aortic stenosis. At that time, cardiac catheterization did not show significant coronary artery disease. The patient had recent hospitalization with septicemia, for which she was treated with broad spectrum antibiotics. In the interim, the patient's fevers have gradually resolved. During her hospitalization, an echocardiogram at that time did not show any abnormalities of her bioprosthetic aortic valve. On yesterday evening, the patient was noted by family to have left-sided weakness and facial droop. She was brought to the hospital with the suspicion of acute CVA. Her symptoms have improved overnight. She denies any chest pain or shortness of breath. She is without other cardiac complaint at this time. Blood cultures on this admission are thus far unremarkable. PAST MEDICAL HISTORY: 1. Calcific aortic stenosis, status post bioprosthetic aortic valve replacement in 2013. 2. Hyperlipidemia. 3. Polymyalgia. 4. Gout. 5. Cholecystectomy remotely. 6. Appendectomy as a child. 7. Hysterectomy remotely. 8. Previous knee surgery and ankle surgery. 9. Colon cancer resection in 03/2018 followed with chemotherapy. 10. Recent admission with septicemia and presumed pneumonia. FAMILY HISTORY: Noncontributory. SOCIAL HISTORY: The patient lives with her daughter in a separate apartment. She does not smoke or drink alcohol. ALLERGIES: SULFA ANTIBIOTICS. CURRENT MEDICATIONS: Clindamycin 300 mg t.i.d., Lomotil p.r.n., iron sulfate 325 mg daily, probiotic one capsule b.i.d., omeprazole [place] [address] CONSULTATION Name: YASHIRA BAXTER Room: [address]#: [id number] Admission: 01/25/19 Attend Phys: Haylee Isbell MD Discharge: Date of : 31 Report #: [id number] REVIEW OF SYSTEMS: A 14-point review of systems is positive for focal paralysis and weakness as outlined above, pneumonia in December of this year, occasional lower extremity swelling, history of peptic ulcer disease, anemia, colon cancer as outlined above. SULFA ANTIBIOTIC ALLERGY. Otherwise, 14-point review of systems was unremarkable. PHYSICAL EXAMINATION: VITAL SIGNS: Stable. Blood pressure 131/45, pulse is 71 and regular. GENERAL: This is a pleasant elderly female in no distress. Mood and affect appropriate. HEENT: Extraocular muscles intact. Mucous membranes are moist. No facial droop noted. NECK: Shows no jugular venous distention. CHEST: Reveals clear lung alejandra. CARDIOVASCULAR: Reveals a regular rhythm without gallop or murmur. ABDOMEN: Reveals normal bowel sounds. EXTREMITIES: Shows no edema. SKIN: Warm and dry. LABORATORY DATA: Reviewed. Sodium 139, potassium 3.9, chloride 106, bicarbonate 27, BUN 11, creatinine 0.7, serum glucose 95. AST 50. Lipase 302. Total bilirubin 0.8, calcium 8.0, phosphorus 4.2, magnesium 1.7, alkaline phosphatase 129, ALT 18, total protein 6.8, albumin 2.4, EGFR 80, ammonia level 25. Lactic acid 1.7. Total CPK 14. Troponin 0.11. NT-proBNP 4214. Total cholesterol 150, triglycerides 69, HDL 25, LDL 112. White blood cell count 7.1, hemoglobin 7.9, MCV 100.2, platelet count 173,000. Chest x-ray shows small left pleural effusion without acute pulmonary process. IMPRESSION AND RECOMMENDATIONS: 1. Recent cerebrovascular accident/transient ischemic attack in a patient with history of bioprosthetic aortic valve replacement. I would propose we proceed with transesophageal echocardiogram to evaluate aortic valve anatomy and rule out thrombus or vegetation. We will also check for shunt. The patient's symptoms have improved overnight. 2. History of aortic valve replacement with a bioprosthetic aortic valve for severe aortic stenosis. 3. Mitral stenosis with calcific mitral annular calcification. 4. Recent pneumonia with sepsis as outlined above. 5. Colon cancer, status post resection and chemotherapy. <ELECTRONICALLY SIGNED> By: Mike Bueno MD, FACC 01/26/19 1651 1059 [id number] Bueno MD, FACC /nt
--- NOTE | 2019-01-26 18:55 | NUR ---
NO ACUTE CHANGES THROUGHOUT SHIFT. REFER TO CHARTING. NEURO CONSULT IN PLACE. PT DAUGHTER AND SON HERE AT BEDSIDE THROUGHOUT SHIFT AND UPDATED ON CURRENT PLAN OF CARE. PT HAD MRI HEAD TODAY- REFER TO RESULTS. PT HAD SHERI TODAY. REFER TO RESULTS. REHAB CONSULT IN PLACE. NIH COMPLETED. REFER TO CHARTING. PT WORKED WITH PT, OT AND ST TODAY-TOLERATED WELL. PT SLOWLY PROGRESSING TOWARDS GOALS. MEDICATIONS PER MAR. PT REPOSITIONS SELF. HOURLY ROUNDING OBSERVED. BED IN LOW POSITION. CALL LIGHT WITHIN REACH. WILL CONTINUE PLAN OF CARE.
[2019-01-27 03:07] LABS: GLYCOHEMOGLOBIN (HGB A1C) 4.5 % (4.8-5.6)
[2019-01-27 04:00] VITALS: BP 135/52
--- NOTE | 2019-01-27 04:17 | NUR ---
ASSUMED CARE OF PT AT 1900. PT IS ALERT AND ORIENTED. VSS. PERRLA. NO COMPLAINTS OF PAIN. NIH IS 0. PT IS IN SINUS RYTHM ON THE TELEMETRY. PT IS RESTING COMFORTABLY IN BED. RESPIRATIONS ARE EVEN AND NONLABORED. WILL CONTINUE TO MONITOR PT.
[2019-01-27 05:24] LABS: HEMATOCRIT 24.3 % (37.0-47.0); HEMOGLOBIN 8.3 gm/dL (12.0-15.0); MCH 33.9 pg (26.0-34.0); MCV 99.8 fL (80.0-100.0); MPV 8.3 fl. (7.2-11.1); RBC 2.44 mil/uL (4.20-5.00); RDW-CV 14.5 % (10.5-14.5); WBC 7.3 thou/uL (4.0-11.0)
[2019-01-27 05:45] LABS: CALCIUM 8.1 mg/dL (8.5-10.1); CREATININE 0.7 mg/dL (0.6-1.3); MAGNESIUM 1.7 mg/dL (1.8-2.4); POTASSIUM 3.8 mmol/L (3.5-5.1)
[2019-01-27 08:00] VITALS: BP 138/45
--- NOTE | 2019-01-27 09:40 | NUR ---
Rehab consult placed, Dr Valdovinos to see today. Per nurse, Pt may be ready to dc today. Following.
[2019-01-27 11:50] VITALS: BP 124/48
--- NOTE | 2019-01-27 14:40 | NUR ---
Pt accepted to acute rehab, plan dc tomorrow.
[2019-01-27 15:45] VITALS: BP 131/51
[2019-01-27 19:20] VITALS: BP 129/51
[2019-01-28 00:19] VITALS: BP 120/46
[2019-01-28 04:00] VITALS: BP 133/59
[2019-01-28 04:28] LABS: HEMATOCRIT 25.2 % (37.0-47.0); HEMOGLOBIN 8.3 gm/dL (12.0-15.0); MCH 32.8 pg (26.0-34.0); MCHC 33.1 g/dL (28.0-37.0); MCV 99.1 fL (80.0-100.0); MPV 8.2 fl. (7.2-11.1); RBC 2.55 mil/uL (4.20-5.00); RDW-CV 14.6 % (10.5-14.5); WBC 7.9 thou/uL (4.0-11.0)
[2019-01-28 04:43] LABS: CALCIUM 8.2 mg/dL (8.5-10.1); CREATININE 0.8 mg/dL (0.6-1.3); MAGNESIUM 1.7 mg/dL (1.8-2.4); POTASSIUM 3.6 mmol/L (3.5-5.1)
[2019-01-28 07:56] VITALS: BP 136/51
[2019-01-28] MEDS ORDERED: PLAVIX 75 MG TA75 M1 PO (08:28)
[2019-01-28] MEDS ORDERED: PEPCID20 MG PO (08:28)
[2019-01-28] MEDS ORDERED: LIPITOR40 MG PO (08:28)
[2019-01-28] MEDS ORDERED: FOLIC ACID1 MG PO (08:28)
--- NOTE | 2019-01-28 11:34 | NUR ---
Pt discharging to acute rehab today. CM gave liaison the dc orders. Awaiting on time of transfer.
[2019-01-28 13:43] VITALS: BP 136/51
--- NOTE | 2019-01-30 14:40 | CON ---
[address] [address] CONSULTATION Name: YASHIRA BAXTER Room: [address] IN M.R.#: [id number] Admission: 01/25/19 Attend Phys: Haylee Isbell MD Discharge: 01/28/19 Date of : 31 Report #: [id number] THIS REPORT FOR: //name// CC: Delia Sujata Isbell DATE OF SERVICE: 01/26/2019 HISTORY OF PRESENT ILLNESS: This is an 83-year-old female patient who was evaluated for left-sided weakness, which has become better. The patient was seen in MRI, but I talked to the patient's daughter who is a physician. The patient had weakness on the left side, which mostly resolved, but she still has some weakness, especially in the face. This patient has been sick recently. It started with colon cancer and she has multiple problems recently. She also has aortic valve replacement. REVIEW OF SYSTEMS: A 14-point review of system was carried out and this was a relevant 14-point review of system. I reviewed the ID notes and it looks like this patient had a recent septicemia. PAST MEDICAL HISTORY: Positive for colon cancer and multiple other problems recently. FAMILY HISTORY: Unremarkable. SOCIAL HISTORY: She lives with her daughter who is a physician. PHYSICAL EXAMINATION: Indicated she is alert. She is responsive. She can follow simple commands. She knows it is January. She could not tell me the exact date. Her speech, concentration, fund of knowledge and memory are at her baseline. Cranial nerve examination 2-12 was difficult to carry out to some extent, especially visual field. It does looks like she may have some weakness on the left side. She moves all 4 extremities. There is no meningeal sign. There is no carotid bruit. Cardiac examinations indicate that she has a replaced valve. Respiratory examination does not appear to be showing any respiratory difficulty. Blood pressure is 131/45, respiration is 18, pulse is 71, and temperature is 98.6. LABORATORY DATA: Her labs indicate a hemoglobin of 7.9, which has dropped from 9.3 the day before. I reviewed all her imaging studies and reviewed the pictures and she does have finding consistent with small strokes on both sides. Vasculature is clean as far as carotids are concern. IMPRESSION: Multiple small strokes in a patient [place] [address] CONSULTATION Name: YASHIRA BAXTER Room: [address] IN [facility]#: [id number] Admission: 01/25/19 Attend Phys: Haylee Isbell MD Discharge: 01/28/19 Date of : 31 Report #: [id number] clean. A cardiac embolization needs to be excluded in this patient. Especially with the recent septicemia, the possibility of endocarditis needs to be excluded. It appeared she is already scheduled for SHERI and we will see what that shows. She also had a blood culture drawn and we will see what it grows. If HSERI is unremarkable, she also needs 30 days' event monitor to look for embolization or even implantable monitor because of suspicion that this is because of embolization from the heart is very strong and she will need extensive workup to exclude that. I had talked earlier to the patient and the daughter and we will talk to them again. She is already on aspirin. She may need statin but the biggest thing in this patient is going to be evaluating the patient for any source of embolization from the heart. <ELECTRONICALLY SIGNED> By: Jared Ma MD 01/30/19 1440 1329 [id number] Ma MD /nt
== END 2019-01-28 14:10 | DRG 871 ==
LOC: M.ERS 18:27 → M.2W 19:05 → M.TBA-ER 19:05 → M.2W 20:59
PROVIDERS: Family Medicine; Internal Medicine; ADMIT Family Medicine
PROC: B24BZZ4 Ultrasonography of Heart with Aorta, Transesophageal (ICD-10-PCS; principal; 2019-01-26)
DX: A40.8 Other streptococcal sepsis (principal); I63.9 Cerebral infarction, unspecified; K25.4 Chronic or unspecified gastric ulcer with hemorrhage; K29.71 Gastritis, unspecified, with bleeding; G45.9 Transient cerebral ischemic attack, unspecified; Q21.1 Atrial septal defect; Z96.652 Presence of left artificial knee joint; E78.5 Hyperlipidemia, unspecified; M10.9 Gout, unspecified; I05.0 Rheumatic mitral stenosis; K74.60 Unspecified cirrhosis of liver; I83.90 Asymptomatic varicose veins of unspecified lower extremity; D50.0 Iron deficiency anemia secondary to blood loss (chronic); E53.8 Deficiency of other specified B group vitamins; I70.90 Unspecified atherosclerosis; Z90.49 Acquired absence of other specified parts of digestive tract; Z79.01 Long term (current) use of anticoagulants; Z95.2 Presence of prosthetic heart valve; Z90.710 Acquired absence of both cervix and uterus; Z85.038 Personal history of other malignant neoplasm of large intestine; Z88.2 Allergy status to sulfonamides; Z87.891 Personal history of nicotine dependence; Z92.21 Personal history of antineoplastic chemotherapy; Z83.6 Family history of other diseases of the respiratory system; Z87.11 Personal history of peptic ulcer disease; Z79.899 Other long term (current) drug therapy

== ENCOUNTER 2019-01-28 12:31 | Inpatient (IN) | payer MEDICARE, OTHER ==
[~2019-01-28] VITALS: Ht 157.5 cm; Wt 53.1 kg
[~2019-01-28 12:31] MED LIST changes: +FOLIC ACID1 MG PO; +IRON325 PO; +LIPITOR40 MG PO; +PLAVIX 75 MG TA75 M1 PO
[2019-01-28 14:20] VITALS: BP 129/45
--- NOTE | 2019-01-28 17:41 | NUR ---
PT IS ALERT AND ORIENTATED AND TRANSFERRS WITH WALKER AND MIN ASSIST OF 1.PTDENIES PAIN. FRANK FROM CARDIOLOGY HAS BEEN HERE AND PLACED HALTER MONITOR ON PT WITH DIRECTIONS IN BOX AT BEDSIDE.NURSING MESSAGE IN CARE PLAN WITH SOME DIRECTIONS FOR CARE. SON HAS BEEN HERE. PT INSTRUCTED ON USE OF CALL LIGHT AND FALL PRECAUTIONS DISCUSSED.
[2019-01-28 20:00] VITALS: BP 129/47
[2019-01-29 04:17] LABS: HEMATOCRIT 25.5 % (37.0-47.0); HEMOGLOBIN 8.4 gm/dL (12.0-15.0); MCH 32.8 pg (26.0-34.0); MCHC 32.9 g/dL (28.0-37.0); MCV 99.7 fL (80.0-100.0); MPV 8.2 fl. (7.2-11.1); RBC 2.56 mil/uL (4.20-5.00); RDW-CV 14.6 % (10.5-14.5); WBC 7.6 thou/uL (4.0-11.0)
[2019-01-29 04:21] LABS: CALCIUM 8.2 mg/dL (8.5-10.1); CREATININE 0.7 mg/dL (0.6-1.3); POTASSIUM 3.8 mmol/L (3.5-5.1)
--- NOTE | 2019-01-29 05:09 | NUR ---
ASSUMED PT CARE AT 1930. PT ALERT AND ORIENTED X4, POLITE AND COOPERATIVE WITH CARES. DENIES PAIN. PT UP TO BATHROOM TO VOID WITH SBA, GAIT BELT, WALKER, CUEING AND EXTRA TIME. NO STOOL THIS SHIFT. PT ON ORAL ANTIBIOTICS. PT WEARING HOLTER MONITOR. PT HAS NUMEROUS BRUISES ON ARMS BILATERALLY. CALL LIGHT AND FREQUENTLY USED ITEMS WITHIN REACH. HOURLY ROUNDING IN PROGRESS, WILL CONTINUE TO MONITOR.
[2019-01-29 08:00] VITALS: BP 131/63
--- NOTE | 2019-01-29 11:20 | NUR ---
Nutrition: Pt admitted to Rehab with CVA. H/o colon cancer w/ chemo, PN, cirrhosis with varices. Wt is usually 130-140#, currently 124#. Alb 2.4, prealb 6.2 - severely depleted. Pt also with anemia. RX: Fe, folic acid, L. acidophilus. +BM. Regular diet. GOALS: >75% meal intake. Altered nutrition-related lab values R/T protein AEB labs above. RD will order Beneprotein packets. Mild risk.
[2019-01-29 12:22] LABS: URINE BILIRUBIN NEGATIVE (Negative); URINE BLOOD NEGATIVE (Negative); URINE CLARITY CLEAR; URINE COLOR YELLOW; URINE GLUCOSE-RANDOM NEGATIVE (Negative); URINE KETONES NEGATIVE (Negative); URINE LEUKOCYTES TRACE (Negative); URINE NITRITE NEGATIVE (Negative); URINE PROTEIN NEGATIVE (Negative); URINE SPECIFIC GRAVITY 1.015 (1.005-1.030); URINE UROBILINOGEN 0.2 E.U./dl (0.2-1.0)
[2019-01-29 12:56] LABS: SQUAMOUS >10 Many /LPF (0-3); URINE RBC None Seen /HPF (0-2); URINE WBC 0-5 Rare /HPF (0-5)
[2019-01-29 12:57] LABS: BACTERIA None Seen /HPF (None Seen); CRYSTALS None Seen /LPF (None Seen); HYALINE CASTS 0-3 Few /LPF (None Seen); MUCUS >6 Heavy strn/LPF (None Seen)
--- NOTE | 2019-01-29 14:58 | NUR ---
ASSUMMED CARE OF PT AT O730, PT ALERT AND ORIENTED, PT TRANSFERS WITH GB WALKER ASSIST OF 1, RIGHT FOOT TURNS OUT, PT STATES SHE BROKE IT MANY YEARS AGO AND IT HAS NOT BEEN STRAIGHT SINCE THEN, AMBULATES TO BATHROOM, VOIDS IN GOOD AMOUNTS, BM X 2 THIS SHIFT, UA SENT TO LAB, BLADDER SCAN DONE X 1 WITH 25CC RESIDUAL AFTER VOID, DENIES PAIN, TAKING FOOD AND FLUIDS WELL,HAD LUNCH IN DININGROOM, HOLTOR MONITOR INTACT, PARTICIPATED IN ALL THERAPIES, HOURLY ROUNDING COMPLETED, ASSESSMENT COMPLETE, WILL CONTINUE TO MONITOR.
--- NOTE | 2019-01-29 16:19 | NUR ---
I have reviewed the documentation by STEPHEN THOMAS from TODAY to 01/29/19 and I concur with it. MARIA L TORRE
--- NOTE | 2019-01-29 16:25 | NUR ---
SW met with pt and pt son to complete initial assessment, introduce self, and SW role. Pt alert, oriented, pleasant. Pt lives in an apt above her dtr's garage and is usually independent; pt dtr checks on pt morning and evening and calls during the day. Pt has hx with [facility]. Pt has RW. SW to continue to follow to assist with safe dc planning.
[2019-01-29 19:30] VITALS: BP 128/43
--- NOTE | 2019-01-30 05:34 | NUR ---
ASSUMED CARE AT 1930. PATIENT UP IN RECLINER UNTIL AFTER TAKING HER HS MEDS. UP WITH SBA, GAIT BELT, WALKER, TO TOILET TO VOID. DOES OWN CARES. TAKES PILLS WHOLE WITH WATER WITHOUT DIFF. VERY PLEASANT. SLEPT MOST OF THE NIGHT EXCEPT TO VOID THEN RETURNS TO SLEEP. NO BMS THIS SHIFT. HOURLY ROUNDS CONTINUE. BED ALARM ON. CALL LITE IN REACH.
[2019-01-30 08:00] VITALS: BP 124/55
--- NOTE | 2019-01-30 17:04 | NUR ---
ASSUMMED CARE OF PT AT 0730, PT ALERT AND ORIENTED, TRANSFERS WITH SBA,GB WALKER, DENIES PAIN, TAKING FOOD AND FLUIDS WELL, AMBULATES TO BATHROOM TO VOID, AMBULATED TO DININGROOM FOR LUNCH, PARTICIPATED IN ALL THERAPIES, HOURLY ROUNDING COMPLETED ASSESSMENT COMPLETE, WILL CONTINUE TO MONITOR.
[2019-01-30 19:30] VITALS: BP 132/44
--- NOTE | 2019-01-31 00:14 | NUR ---
ASSUMED CARE AT 1930. PATIENT RESTED IN RECLINER UNTIL END OF [employer] GAME, AROUND 2114. UP TO VOID, GAIT BELT, WALKER. DOES OWN CARES, CHANGES PADS. TURNS SELF. NO C/O PAIN. TAKES PILLS WHOLE WITH WATER. HOLTER MONITOR ON, PHONE CHARGING. HOURLY ROUNDS CONTINUE. BED ALARM ON. CALL LITE IN REACH.
--- NOTE | 2019-01-31 06:23 | NUR ---
SLEPT MOST OF THE NIGHT. NO C/O PAIN. HOURLY ROUNDS CONTINUE. BED ALARM ON. CALL LITE IN REACH.
[2019-01-31 08:00] VITALS: BP 128/50
--- NOTE | 2019-01-31 17:07 | NUR ---
ASSUMMED CARE OF PT AT 0730, PT ALERT AND ORIENTED, TRANSFERS WITH SBA GB WALKER, DENIES PAIN, TAKING FOOD AND FLUIDS WELL, VOIDS PER TOILET, SMALL AMOUNT OF SOFT STOOL X 1, TO DININGROOM FOR LUNCH, HOURLY ROUNDING COMPLETED, ASSESSMENT COMPLETE, WILL CONTINUE TO MONITOR.
[2019-01-31 19:00] VITALS: BP 114/41
--- NOTE | 2019-01-31 23:20 | NUR ---
ASSUMED CARE AT 1930. PATIENT RESTED IN RECLINER UNTIL AROUND 2030. UP WITH SBA, GAIT BELT, WALKER. CHANGES OWN PADS IN PANTY WITH SETUP. TAKES PILLS WHOLE WITH WATER WITHOUT DIFF. HOLTER MONITOR INTACT TO CHEST. PHONE CHARGING. NO C/O PAIN. HOURLY ROUNDS CONTINUE. BED ALARM ON. CALL LITE IN REACH.
--- NOTE | 2019-02-01 05:29 | NUR ---
SLEPT ALL NIGHT EXCEPT TO VOID. UP WITH SBA, GAIT BELT, WALKER. DOES OWN CARES. TURNS SELF. NO C/O PAIN. HOURLY ROUNDS CONTINUE. BED ALARM ON. CALL LITE IN REACH.
[2019-02-01 08:33] VITALS: BP 154/55
--- NOTE | 2019-02-01 17:40 | NUR ---
ASSUMED CARE AT 0730. ALERT ORIENTED PLEASANT COOPERATIVE. HX OF CVA MOVES ALL EXTREMETIES. TRANSFERS WITH SBA G BELT WALKER AND AMBULATES TO BR AND TO DR FOR MEALS. DENIES PAIN OR CONCERNS. HAS HALTER MONITOR L [place]. REPLACED PATCH THIS EARLY AFTERNOON AND CHARGED UNIT ALSO. PARTICIPATING IN THERAPIES THROUGHOUT THE DAY. UP IN RECLINER WITH LEGS ELEVATED WHEN NOT IN THERAPIES. TAKES MEDS WITHOUT DIFFICULTY AND FEEDS SELF. USES CALL LIGHT APPROPRIATELY FOR ASSISTANCE.
--- NOTE | 2019-02-01 20:05 | NUR ---
SITTING UP IN CHAIR WATCHING TV. DENIES DISCOMFORT. TOOK PILLS ONE AT A TIME WITH WATER. DECLINED OFFER OF A SNACK.
[2019-02-01 20:41] VITALS: BP 112/48
--- NOTE | 2019-02-02 05:44 | NUR ---
RESTED QUIETLY. UP X ONE DURING THE NIGHT TO VOID. HOURLY ROUNDING IN PROGRESS.
[2019-02-02 08:00] VITALS: BP 109/58; BP 119/52
--- NOTE | 2019-02-02 16:12 | NUR ---
ASSUMMED CARE OF PT AT 0730, PT ALERT AND ORIENTED, TRANSFERS WITH SBA, GB WALKER, AMBULATES TO BATHROOM TO VOID, WEARS ANSELMO PAD, BM X 1 THIS SHIFT, HOLTER MONITOR INTACT,MONITOR PHONE TO ACCOMPANY PT WHEN OUTSIDE OF ROOM, DENIES PAIN, TAKING FOOD AND FLUIDS WELL, PARTICIPATED IN ALL THERAPIES, HOURLY ROUNDING COMPLETED, ASSESSMENT COMPLETE, WILL CONTINUE TO MONITOR.
--- NOTE | 2019-02-02 19:20 | NUR ---
SITTING UP IN CHAIR WATCHING THE [employer] GAME ON TV. DENIES DISCOMFORT. HEART MONITOR IN PLACE. CALL LIGHT WITHIN REACH.
[2019-02-02 19:30] VITALS: BP 124/42
--- NOTE | 2019-02-03 04:50 | NUR ---
RESTED QUIETLY ALL NIGHT. HOURLY ROUNDING IN PROGRESS.
[2019-02-03 08:42] VITALS: BP 129/52
--- NOTE | 2019-02-03 15:15 | NUR ---
KARIME and Dr Valdovinos met with pt to review team conference summary and plan for pt to remain on rehab unit one more week with dc next Saturday 02/10. KARIME called pt dtr Delia and left a voicemail providing plan information. KARIME called pt son Alec and provided review and dc plan; pt/family in agreement with plan. SW to continue to follow to assist with safe dc planning.
--- NOTE | 2019-02-03 16:43 | NUR ---
PATIENT UP WITH SBA. ALERT AND ORIENTED X 4. DENIES COMPLAINTS OF PAIN OR DISCOMFORT. TO MAIN DINING AREA FOR MEALS. NO SIGN OF DISTRESS. CONT. WITH PLAN OF CARE.
[2019-02-03 19:00] VITALS: BP 118/46
--- NOTE | 2019-02-04 05:49 | NUR ---
ASSUMED PT CARE AT 1930. PT ALERT AND ORIENTED X4, POLITE AND COOPERATIVE WITH CARES. PT SITTING UP IN RECLINER AT SHIFT CHANGE WATCHING THE [place]. DENIES PAIN. HEART MONITOR IN PLACE. UP TO BATHROOM TO VOID WITH SBA, GAIT BELT AND WALKER. SLEPT WELL OVERNIGHT. CALL LIGHT AND FREQUENTLY USED ITEMS IN REACH. HOURLY ROUNDING IN PROGRESS, WILL CONTINUE TO MONITOR.
[2019-02-04 08:00] VITALS: BP 119/49
--- NOTE | 2019-02-04 13:59 | NUR ---
PATIENT ALERT AND ORIENTED X 4, UP WITH SBA, ROLLING WALKER. DENIES COMPLAINTS OF PAIN OR DISCOMFORT. NO SIGN OF DISTRESS. CONT. WITH CURRENT PLAN OF CARE AT THIS TIME.
[2019-02-04 19:20] VITALS: BP 121/50
--- NOTE | 2019-02-04 19:20 | NUR ---
SITTING UP IN RECLINER WATCHING THE [place] ON TV. DENIES DISCOMFORT. HEART MONITOR IN PLACE. CALL LIGHT WITHIN REACH.
[2019-02-05 05:02] LABS: HEMATOCRIT 25.1 % (37.0-47.0); HEMOGLOBIN 8.3 gm/dL (12.0-15.0); MCH 32.7 pg (26.0-34.0); MCHC 33.1 g/dL (28.0-37.0); MCV 98.6 fL (80.0-100.0); RBC 2.55 mil/uL (4.20-5.00); RDW-CV 14.6 % (10.5-14.5); WBC 7.5 thou/uL (4.0-11.0)
--- NOTE | 2019-02-05 05:05 | NUR ---
RESTED QUIELTY ALL NIGHT. NO COMPLAINTS VOICED. HOURLY ROUNDING IN PROGRESS.
[2019-02-05 08:00] VITALS: BP 115/55
--- NOTE | 2019-02-05 14:20 | NUR ---
ASSUMED CARE AT 0730. ALERT ORIENTED PLEASANT COOPERATIVE. HX OF CVA MOVES ALL EXTREMETIES WELL. TRANSFERS WITH SBA G BELT WALKER AND AMBULATES TO BR AND TO DR FOR MEALS. PARTICIPATING IN THERAPIES THROUGHOUT THE DAY. SITTING UP IN RECLINER WHEN NOT IN THERAPIES. USES CALL LIGHT APPROPRIATELY FOR ASSISTANCE. CHAIR ALARM FOR PT. SAFETY. WEARING HALTER MONITOR L CHEST SENSOR PATCH CHANGED TODAY AND CHARGED. DENIES PAIN OR REQUESTS.
[2019-02-05 20:09] VITALS: BP 119/41
--- NOTE | 2019-02-05 23:23 | NUR ---
ASSUMED CARE AT 1930. PATIENT RESTED IN RECLINER UNTIL AROUND 2099. WAS WATCHING [employer]. UP WITH SBA, GAIT BELT, WALKER. VOIDS PER TOILET AND CHANGES OWN PERIPAD WITH SET UP PRN. TAKES PILLS WHOLE. TURNS SELF. DENIES PAIN. HOURLY ROUNDS CONTINUE. BED ALARM ON. CALL LITE IN REACH.
--- NOTE | 2019-02-06 05:27 | NUR ---
SLEPT ALL NIGHT THUS FAR. NO C/O PAIN. TURNS SELF. HOURLY ROUNDS CONTINUE. BED ALARM ON. CALL LITE IN REACH
[2019-02-06 10:34] VITALS: BP 116/38
--- NOTE | 2019-02-06 13:52 | NUR ---
PATIENT IS ALERT AND ORIENTED X 4, AMBULATES WITH ROLLING WALKER TO/FROM THE RESTROOM AND MAIN DINNING AREA. DENIES COMPLAINTS OF PAIN OR DISCOMFORT. NO SIGN OF DISTRESS. CONT. WITH CURRENT PLAN OF CARE AT THIS TIME.
[2019-02-06 20:00] VITALS: BP 123/46
--- NOTE | 2019-02-07 05:31 | NUR ---
ASSUMED PT CARE AT 1930. PT ALERT AND ORIENTED X4, POLITE AND COOPERATIVE WITH CARES. PT SITTING UP IN RECLINER WATCHING THE [place]. UP WITH SBA, GAIT BELT AND WALKER TO BATHROOM TO VOID. STOOL X 1 THIS SHIFT. DOES ALL HER OWN CARES INCLUDING PERIPAD. TAKES PILLS WHOLE ONE AT A TIME WITH WATER. HOLTER MONITOR IN PLACE. TURNS HERSELF. DENIES PAIN. CALL LIGHT AND FREQUENTLY USED ITEMS IN REACH. HOURLY ROUNDING IN PROGRESS, WILL CONTINUE TO MONITOR.
[2019-02-07 07:35] VITALS: BP 119/47
--- NOTE | 2019-02-07 13:06 | NUR ---
PATIENT ALERT AND ORIENTED X 4, UP WITH SUPERVISION. AMBULATES TO/FROM RESTROOM USING ROLLING WALKER. DENIES COMPLAINTS OF PAIN OR DISCOMFORT. NO SIGN OF DISTRESS. CONT. WITH CURRENT PLAN OF CARE AT THIS TIME.
[2019-02-07 20:00] VITALS: BP 131/56
--- NOTE | 2019-02-08 05:12 | NUR ---
ASSUMED PT CARE AT 1930. PT ALERT AND ORIENTED X4, POLITE AND COOPERATIVE WITH CARES. PT SITTING UP IN RECLINER WATCHING BALLGAME AT SHIFT CHANGE. UP WITH SBA, GAIT BELT AND WALKER TO BATHROOM TO VOID. STOOL X1 THIS SHIFT. DOES ALL HER OWN CARES INCLUDING PERIPAD. TAKES PILLS WHOLE ONE AT A TIME WITH WTER. HOLTER MONITOR IN PLACE. TURNS HERSELF. DENIES PAIN. CALL LIGHT AND FREQUENTLY USED ITEMS IN REACH. HOURLY ROUNDING IN PROGRESS, WILL CONTINUE TO MONITOR.
[2019-02-08 08:00] VITALS: BP 132/49
--- NOTE | 2019-02-08 13:27 | NUR ---
ASSUMED CARE AT 0730. ALERT ORIENTED PLEASANT COOPERATIVE. HX OF CVA MOVES ALL EXTREMETIES. TRANSFERS WITH SBA G BELT WALKER AMBULATES TO BR TO VOID ABLE TO DO HYGEINE AND CLOTHING ADJUSTMENTS. DENIES PAIN OR CONCERNS. FEEDS SELF AND TAKES MEDS WITHOUT DIFFICULTY. APPETITE GOOD AT BREAKFAST FAIR AT LUNCH. USES CALL LIGHT APPROPRIATELY FOR ASSISTANCE. SITTING UP IN RECLINER AT BEDSIDE WHEN NOT IN THERAPIES.
--- NOTE | 2019-02-08 16:11 | NUR ---
PT. HAS HALTER MONITOR IN PLACE. PARTICIPATING IN THERAPIES THROUGHOUT THE DAY.
[2019-02-08 20:00] VITALS: BP 125/43
--- NOTE | 2019-02-09 05:10 | NUR ---
ASSUMED PT CARE AT 1930. PT ALERT AND ORIENTED X4, POLITE AND COOPERATIVE WITH CARES. PT SITTING UP IN RECLINER WATCHING B[employer] AT SHIFT CHANGE. UP WITH SBA, GAIT BELT AND WALKER TO BATHROOM TO VOID. NO STOOL THIS SHIFT. PT DOES ALL HER OWN CARES. TAKES PILLS WHOLE WITH WATER ONE AT A TIME. HOLTER MONITOR IN PLACE. TURNS HERSELF. DENIES PAIN. PT SLEPT WELL OVERNIGHT. CALL LIGHT AND FRQUENTLY USED ITEMS IN REACH. BED ALARM ON FOR SAFETY. HOURLY ROUNDING IN PROGRESS, WILL CONTINUE TO MONITOR.
[2019-02-09 09:15] VITALS: BP 101/30
[2019-02-09] MEDS ORDERED: LIPITOR40 MG PO (10:32)
[2019-02-09] MEDS ORDERED: ACIDOPHILUS1 EAC4 PO (10:32)
[2019-02-09] MEDS ORDERED: PLAVIX 75 MG TA75 M1 PO (10:32)
--- NOTE | 2019-02-09 11:38 | NUR ---
SW met with pt to prepare for team conference tomorrow and check in on planned dc for tomorrow afternoon as well. Pt expressed feeling confident and ready for dc home tomorrow. Pt said pt son and pt dtr aware and in agreement with plans for dc. Pt questioned taking home the heart monitor and expects to follow up with cardiology at some point after dc. SW to continue to follow to assist with finalizing safe dc plan for 02/10. HH services to follow; hx with [facility]. Pt has RW at home already.
--- NOTE | 2019-02-09 13:35 | NUR ---
ASSUMED CARE AT 0730. ALERT AND ORIENTED PLEASANT COOPERATIVE. HX OF CVA MOVES ALL EXTREMETIES. TRANSFERS WITH SBA G BELT WALKER AMBULATES TO DR AND BR WITH STEADY GAIT. DENIES PAIN OR CONCERNS WEARS HALTER MONITOR PATCH WAS CHANGED THIS A.M. SOME PINKNESS NOTED UNDER ADHESIVE PT. STATES ITS ITCHY. TRIED TO ADJUST PLACEMENT SOME FOR SKIN INTEGRITY. USES CALL LIGHT APPROPRIATELY FOR ASSIST. FEEDS SELF AND TAKES MEDS WITHOUT DIFFICULTY. PARTICIPATING IN THERAPIES AND SIS IN RECLINER WHEN NOT IN THERAPIES.
[2019-02-09 19:20] VITALS: BP 117/36
--- NOTE | 2019-02-10 05:09 | NUR ---
ASSUMED CARES AT 1920. ALERT AND ORIENTED. PLEASANT. DENIED ANY PAIN. SBA WITH GAIT BELT AND WALKER. UP TO BATHROOM. DOES OWN CARES. CALL LIGHT IN REACH AND BED ALARM ON.
[2019-02-10 07:00] VITALS: BP 101/38
--- NOTE | 2019-02-10 13:24 | NUR ---
KARIME and Dr Valdovinos met with pt to review team conference summary and discuss pt to dc home with family support today. Team recommending HH services to follow; pt preference of [facility], KARIME faxed final orders and med list to [facility]. Pt in agreement with plan. Pt has RW at home already. Pt son to provide pt ride home.
[2019-02-10 13:27] VITALS: BP 101/38
[2019-02-10 13:39] VITALS: BP 101/38
--- NOTE | 2019-02-10 15:40 | NUR ---
AM ASSESSMENT AND VITAL SIGNS COMPLETED DOCUMENTED. PT COMPLETED THERAPIES AND HAS MET HER DISCHARGE GOALS. DISCHARGE INSTRUCTIONS AND NEW PRESCRIPTIONS DISCUSSED WITH PATIENT AND HER SON, PRINTED COPY PROVIDED FOR HOME. PT AND BELONGINGS TRANSPORTED TO EXIT, DISCHARGED HOME IN STABLE CONDITION.
== END 2019-02-10 15:45 | disposition home health service (06) | DRG 64 ==
LOC: M.REH 12:31
PROVIDERS: Internal Medicine; ADMIT Physical Medicine & Rehabilitation
DX: I63.9 Cerebral infarction, unspecified (principal); K25.4 Chronic or unspecified gastric ulcer with hemorrhage; K29.71 Gastritis, unspecified, with bleeding; A41.9 Sepsis, unspecified organism; Q21.1 Atrial septal defect; G62.9 Polyneuropathy, unspecified; Z96.652 Presence of left artificial knee joint; D50.0 Iron deficiency anemia secondary to blood loss (chronic); K74.60 Unspecified cirrhosis of liver; E53.8 Deficiency of other specified B group vitamins; Z88.2 Allergy status to sulfonamides; Z90.49 Acquired absence of other specified parts of digestive tract; Z95.2 Presence of prosthetic heart valve; Z90.710 Acquired absence of both cervix and uterus; Z85.038 Personal history of other malignant neoplasm of large intestine

== ENCOUNTER → 2019-03-25 | Outpatient (CLI) | payer MEDICARE, OTHER ==
[~2019-03-25] MED LIST changes: +ACIDOPHILUS1 EAC4 PO
[2019-03-25 13:06] LABS: ABSOLUTE EOSINOPHILS 0.1 thou/uL (0.0-0.7); ABSOLUTE MONOCYTES 0.4 thou/uL (0.0-1.2); ABSOLUTE NEUTROPHILS 2.9 thou/uL (1.6-8.1); BASOPHILS 0.8 %; EOSINOPHILS 1.9 %; HEMATOCRIT 28.6 % (37.0-47.0); HEMOGLOBIN 9.6 gm/dL (12.0-15.0); LYMPHOCYTES 36.2 %; MCH 33.2 pg (26.0-34.0); MCHC 33.6 g/dL (28.0-37.0); MCV 98.8 fL (80.0-100.0); MONOCYTES 7.7 %; MPV 7.9 fl. (7.2-11.1); NUCLEATED RBCS 0 /100WBC; PLATELET COUNT* 243 thou/uL (150-400); POLYS 53.4 %; RDW-CV 16.4 % (10.5-14.5); WBC 5.5 thou/uL (4.0-11.0)
[2019-03-25 13:27] LABS: % SATURATION 16 % (20-39); IRON 42 ug/dL (50-175)
== END ==
LOC: M.LAB 12:45
PROVIDERS: Family Medicine
DX: D50.0 Iron deficiency anemia secondary to blood loss (chronic) (principal)

== ENCOUNTER → 2019-06-18 | Outpatient (CLI) | payer MEDICARE, OTHER | LOC: M.ULTRA 08:43 | DX: K74.60 Unspecified cirrhosis of liver (principal); Z90.49 Acquired absence of other specified parts of digestive tract ==